=== PATIENT | female | born 1985 | race Caucasian/White ===

== ENCOUNTER 2017-10-20 08:49 | Emergency (ER) | payer MEDICAID ==
[~2017-10-20] VITALS: Ht 172.7 cm; Wt 59.1 kg
[~2017-10-20 08:49] MED LIST: NO HOME MEDS
[2017-10-20 08:57] VITALS: BP 118/81
== END 2017-10-20 09:20 | disposition home or self-care (01) ==
LOC: ER 08:49
DX: Z04.1 Encounter for examination and observation following transport accident (principal); F12.90 Cannabis use, unspecified, uncomplicated; F15.90 Other stimulant use, unspecified, uncomplicated; Z56.0 Unemployment, unspecified
CPT/HCPCS: 99283

== ENCOUNTER 2018-03-28 08:57 | Emergency (ER) | payer MEDICAID ==
[~2018-03-28] VITALS: Ht 165.1 cm; Wt 72.7 kg
[2018-03-28 09:02] VITALS: BP 120/73
[2018-03-28 09:26] LABS: BASOPHILS % (AUTO) 0.3 % (0-1); EOSINOPHILS # (AUTO) 0.1 X10'3 (0-0.9); EOSINOPHILS % (AUTO) 1.9 % (0-6); HEMATOCRIT 36.6 % (35.0-45.0); HEMOGLOBIN 12.4 g/dl (12.0-16.0); LYMPHOCYTES # (AUTO) 1.2 X10'3 (1.1-4.8); LYMPHOCYTES % (AUTO) 18.4 % (21-51); MEAN CORPUSCULAR HEMOGLOBIN 30.2 PG (27.0-31.0); MEAN CORPUSCULAR HGB CONC 33.8 % (33.0-36.5); MEAN CORPUSCULAR VOLUME 89.1 FL (78-98); MEAN PLATELET VOLUME 7.6 FL (7.4-10.4); MONOCYTES # (AUTO) 0.3 X10'3 (0-0.9); MONOCYTES % (AUTO) 4.6 % (2-12); NEUTROPHILS # (AUTO) 4.9 X10'3 (1.8-7.7); NEUTROPHILS % (AUTO) 74.8 % (42-75); PLATELET COUNT 230 X10'3 (140-440); RED CELL DISTRIBUTION WIDTH 13.4 % (11.5-14.5); WHITE BLOOD COUNT 6.6 X10'3 (4.5-11.0)
[2018-03-28 09:31] LABS: URINE HCG NEGATIVE (NEG)
[2018-03-28 09:42] LABS: URINE AMPHETAMINE SCREEN NEGATIVE (Neg); URINE BARBITUATE SCREEN NEGATIVE (Neg); URINE BENZODIAZEPINES SCREEN NEGATIVE (Neg); URINE CANNABINOID SCREEN NEGATIVE (Neg); URINE COCAINE SCREEN NEGATIVE (Neg); URINE METHADONE SCREEN NEGATIVE (Neg); URINE OPIATE SCREEN NEGATIVE (Neg); URINE PHENCYCLIDINE SCREEN NEGATIVE (Neg)
[2018-03-28 09:44] LABS: ALANINE AMINOTRANSFERASE 26 U/L (12-78); ALBUMIN 3.6 G/DL (3.4-5.0); ALBUMIN/GLOBULIN RATIO 0.9 (1.1-1.5); ALKALINE PHOSPHATASE 65 IU/L (46-116); ANION GAP 7 (8-16); ASPARTATE AMINO TRANSFERASE 20 U/L (10-37); BILIRUBIN,TOTAL 0.4 MG/DL (0.1-1.0); BLOOD UREA NITROGEN 18 MG/DL (7-18); CHLORIDE 103 MMOL/L (99-107); ETHANOL < 0.010 GM/DL (0.0-0.010); GLUCOSE 88 MG/DL (70-104); SODIUM 140 MMOL/L (135-145); TOTAL CARBON DIOXIDE 29.9 MMOL/L (24-32); TOTAL PROTEIN 7.4 G/DL (6.4-8.2); eGFR 72 ML/MIN
[2018-03-28 09:45] LABS: CLARITY,URINE CLEAR (Clear); COLOR,URINE YELLOW (Yellow); GLUCOSE, URINE NEGATIVE (Neg); KETONES,URINE NEGATIVE (Neg); LEUKOCYTE ESTERASE ,URINE TRACE (Neg); NITRITES, URINE NEGATIVE (Neg); OCCULT BLOOD,URINE NEGATIVE (Neg); PH,URINE 6.5 (4.8-8.0); PROTEIN,URINE NEGATIVE (Neg); UA COLLECTION TYPE CLN CATCH MIDSTREAM; UROBILINOGEN,URINE 0.2 E.U/dL (0.2-1.0)
[2018-03-28 09:51] LABS: BACTERIA,URINE NONE SEEN /HPF (Neg); RBC,URINE NONE SEEN /HPF (0-2); SQUAMOUS EPITHELIAL CELL,UR FEW /LPF (FEW); WBC,URINE 0-4 /HPF (0-4)
== END 2018-03-28 10:00 ==
LOC: ER 08:57
DX: F20.9 Schizophrenia, unspecified (principal); F41.9 Anxiety disorder, unspecified; F12.90 Cannabis use, unspecified, uncomplicated; F15.90 Other stimulant use, unspecified, uncomplicated; F10.10 Alcohol abuse, uncomplicated; Z56.0 Unemployment, unspecified
CPT/HCPCS: 36415; 80053; 80305; 80320; 81001; 81025; 85025; 99285

== ENCOUNTER 2018-05-24 20:13 | Emergency (ER) | payer MEDICAID ==
[~2018-05-24] VITALS: Ht 165.1 cm; Wt 77.2 kg
[2018-05-24 21:37] LABS: BASOPHILS % (AUTO) 0.6 % (0-1); EOSINOPHILS # (AUTO) 0.1 X10'3 (0-0.9); EOSINOPHILS % (AUTO) 1.1 % (0-6); HEMATOCRIT 35.4 % (35.0-45.0); HEMOGLOBIN 12.1 g/dl (12.0-16.0); LYMPHOCYTES # (AUTO) 1.3 X10'3 (1.1-4.8); LYMPHOCYTES % (AUTO) 17.7 % (21-51); MEAN CORPUSCULAR HEMOGLOBIN 31.5 PG (27.0-31.0); MEAN CORPUSCULAR HGB CONC 34.2 % (33.0-36.5); MEAN PLATELET VOLUME 7.4 FL (7.4-10.4); MONOCYTES # (AUTO) 0.4 X10'3 (0-0.9); MONOCYTES % (AUTO) 5.2 % (2-12); NEUTROPHILS # (AUTO) 5.6 X10'3 (1.8-7.7); NEUTROPHILS % (AUTO) 75.4 % (42-75); PLATELET COUNT 238 X10'3 (140-440); RED BLOOD COUNT 3.84 X10'6 (4.20-5.60); RED CELL DISTRIBUTION WIDTH 13.8 % (11.5-14.5); WHITE BLOOD COUNT 7.4 X10'3 (4.5-11.0)
[2018-05-24 21:52] LABS: ALANINE AMINOTRANSFERASE 20 U/L (12-78); ALBUMIN 3.8 G/DL (3.4-5.0); ALKALINE PHOSPHATASE 64 IU/L (46-116); ANION GAP 6 (8-16); ASPARTATE AMINO TRANSFERASE 14 U/L (10-37); BILIRUBIN,TOTAL 0.2 MG/DL (0.1-1.0); BLOOD UREA NITROGEN 19 MG/DL (7-18); BUN/CREATININE RATIO 19.4 (6.6-38.0); CALCIUM 8.6 MG/DL (8.5-10.1); CHLORIDE 102 MMOL/L (99-107); CREATININE 0.98 MG/DL (0.40-0.90); GLUCOSE 82 MG/DL (70-104); POTASSIUM 4.1 MMOL/L (3.5-5.1); SODIUM 138 MMOL/L (135-145); TOTAL CARBON DIOXIDE 29.9 MMOL/L (24-32); TOTAL PROTEIN 7.5 G/DL (6.4-8.2); eGFR 65 ML/MIN
[2018-05-24 22:46] LABS: CLARITY,URINE CLEAR (Clear); COLOR,URINE STRAW (Yellow); GLUCOSE, URINE NEGATIVE (Neg); KETONES,URINE NEGATIVE (Neg); LEUKOCYTE ESTERASE ,URINE NEGATIVE (Neg); NITRITES, URINE NEGATIVE (Neg); OCCULT BLOOD,URINE TRACE-INTACT (Neg); PROTEIN,URINE NEGATIVE (Neg); UA COLLECTION TYPE CLN CATCH MIDSTREAM; URINE HCG NEGATIVE (NEG); UROBILINOGEN,URINE 0.2 E.U/dL (0.2-1.0)
[2018-05-24 22:48] VITALS: BP 128/78
[2018-05-24 22:56] LABS: BACTERIA,URINE FEW /HPF (Neg); RBC,URINE NONE SEEN /HPF (0-2); SQUAMOUS EPITHELIAL CELL,UR MODERATE /LPF (FEW); WBC,URINE 0-4 /HPF (0-4)
== END 2018-05-24 22:49 | disposition home or self-care (01) ==
LOC: ER 20:13
DX: R10.2 Pelvic and perineal pain (principal); N89.8 Other specified noninflammatory disorders of vagina; F12.90 Cannabis use, unspecified, uncomplicated; F15.90 Other stimulant use, unspecified, uncomplicated; Z56.0 Unemployment, unspecified
CPT/HCPCS: 36415; 80053; 81001; 81025; 85025; 87210; 99283

== ENCOUNTER 2018-07-12 00:27 | Emergency (ER) | payer MEDICAID ==
[~2018-07-12] VITALS: Ht 172.7 cm; Wt 77.2 kg
== END 2018-07-12 01:06 | disposition home or self-care (01) ==
LOC: ER 00:28
DX: F30.9 Manic episode, unspecified (principal); F15.959 Other stimulant use, unspecified with stimulant-induced psychotic disorder, unspecified; F20.9 Schizophrenia, unspecified; F41.9 Anxiety disorder, unspecified; F12.90 Cannabis use, unspecified, uncomplicated; Z56.0 Unemployment, unspecified
CPT/HCPCS: 99284

== ENCOUNTER 2019-03-29 13:53 | Emergency (ER) | payer MEDICAID ==
[~2019-03-29] VITALS: Ht 162.6 cm; Wt 59.1 kg
[2019-03-29] MEDS ORDERED: haloperidol lactate 5mg/ml inj IM ONE (14:10)
[2019-03-29] MEDS ORDERED: LORazepam 2 mg/ml vial IM ONE (14:10)
--- NOTE | 2019-03-29 14:18 | NUR ---
PT HAS DENIED SI, ALSO DENIED HX OF SCHIZOPHRENIA, MAKING FREQUENT STATEMENTS THAT SHE IS PERSECUTED, HURT BY "THEM". PT UNABLE TO COHERENTLY STATE WHO "THEM" IS
--- NOTE | 2019-03-29 15:00 | NUR ---
PT BROUGHT TO ROOM 24 AND BEING ORIENTATED TO ENVIORMENT AND POLICIES/RULES.
[2019-03-29 15:08] LABS: URINE HCG NEGATIVE (NEG)
[2019-03-29 15:20] LABS: URINE AMPHETAMINE SCREEN POSITIVE (Neg); URINE BARBITUATE SCREEN NEGATIVE (Neg); URINE BENZODIAZEPINES SCREEN NEGATIVE (Neg); URINE CANNABINOID SCREEN NEGATIVE (Neg); URINE COCAINE SCREEN NEGATIVE (Neg); URINE METHADONE SCREEN NEGATIVE (Neg); URINE OPIATE SCREEN NEGATIVE (Neg); URINE PHENCYCLIDINE SCREEN NEGATIVE (Neg)
[2019-03-29 15:34] LABS: BASOPHILS % (AUTO) 0.5 % (0-1); EOSINOPHILS # (AUTO) 0.1 X10'3 (0-0.9); EOSINOPHILS % (AUTO) 0.7 % (0-6); HEMATOCRIT 37.2 % (35.0-45.0); HEMOGLOBIN 12.7 g/dl (12.0-16.0); LYMPHOCYTES # (AUTO) 1.6 X10'3 (1.1-4.8); LYMPHOCYTES % (AUTO) 16.4 % (21-51); MEAN CORPUSCULAR HGB CONC 34.2 g/dL (33.0-36.5); MEAN CORPUSCULAR VOLUME 90.6 FL (78-98); MEAN PLATELET VOLUME 7.2 FL (7.4-10.4); MONOCYTES # (AUTO) 0.5 X10'3 (0-0.9); MONOCYTES % (AUTO) 5.5 % (2-12); NEUTROPHILS # (AUTO) 7.3 X10'3 (1.8-7.7); NEUTROPHILS % (AUTO) 76.9 % (42-75); PLATELET COUNT 269 X10'3 (140-440); RED BLOOD COUNT 4.11 X10'6 (4.20-5.60); RED CELL DISTRIBUTION WIDTH 13.9 % (11.5-14.5); WHITE BLOOD COUNT 9.5 X10'3 (4.5-11.0)
[2019-03-29 15:41] LABS: ALANINE AMINOTRANSFERASE 18 U/L (12-78); ALBUMIN 3.7 G/DL (3.4-5.0); ALBUMIN/GLOBULIN RATIO 1.1 (1.1-1.5); ALKALINE PHOSPHATASE 63 IU/L (46-116); ANION GAP 8 (8-16); ASPARTATE AMINO TRANSFERASE 17 U/L (10-37); BILIRUBIN,TOTAL 0.4 MG/DL (0.1-1.0); BLOOD UREA NITROGEN 17 MG/DL (7-18); BUN/CREATININE RATIO 20.7 (6.6-38.0); CALCIUM 9.3 MG/DL (8.5-10.1); CHLORIDE 105 MMOL/L (99-107); CREATININE 0.82 MG/DL (0.40-0.90); GLUCOSE 99 MG/DL (70-104); POTASSIUM 3.8 MMOL/L (3.5-5.1); SODIUM 142 MMOL/L (135-145); TOTAL CARBON DIOXIDE 29.3 MMOL/L (24-32); TOTAL PROTEIN 7.1 G/DL (6.4-8.2); eGFR 80 ML/MIN
[2019-03-29 15:43] LABS: ACETAMINOPHEN < 2.0 UG/ML (10-30); ETHANOL < 0.010 GM/DL (0.0-0.010)
--- NOTE | 2019-03-29 16:23 | NUR ---
PT LAYING ON RIGHT SIDE RESTING WITH EYES CLOSED, EFFORTLESS RESPIRATIONS OBSERVED.
--- NOTE | 2019-03-29 18:08 | NUR ---
PACKET SENT TO [facility].
--- NOTE | 2019-03-29 20:00 | NUR ---
The patient appears to be sleeping. She did not wake up to eat dinner. She was allowed to sleep. SHe does not appear to be in any distress.
--- NOTE | 2019-03-29 22:05 | NUR ---
The patient appears to be sleeping.
--- NOTE | 2019-03-30 00:08 | NUR ---
The patient appears to be sleeping
--- NOTE | 2019-03-30 02:57 | NUR ---
The patient appears to be sleeping
--- NOTE | 2019-03-30 05:03 | NUR ---
The patient appears to be sleeping
--- NOTE | 2019-03-30 05:29 | NUR ---
The patient is awake and eating.
[2019-03-30 06:00] VITALS: BP 128/58
--- NOTE | 2019-03-30 07:07 | NUR ---
Patient appears to be sleeping comfortably at this time
--- NOTE | 2019-03-30 08:59 | NUR ---
After breakfast patient is now laying back down in bed resting comfortably with no apparent distress
--- NOTE | 2019-03-30 09:20 | NUR ---
called kinza camacho [phone] to order cab for pt, she will have an hour wait, she has chosen to wait in the waiting room for cab, will have her sign dc papers
--- NOTE | 2019-03-30 09:20 | NUR ---
Patient will be discharged today. Patient provided clothing from our donated clothing. Patient will be taking a cab that will be payed for by [facility]. The cab company stated that it would be about 1 hour before they can come and pick her up. After stating an understanding of discharge paperwork and signing this she stated she wanted to wait out front for the cab. Patient ID band was cut off and patient was escorted out.
== END 2019-03-30 09:30 | disposition home or self-care (01) ==
LOC: ER 13:54
DX: F15.959 Other stimulant use, unspecified with stimulant-induced psychotic disorder, unspecified (principal); F32.9 Major depressive disorder, single episode, unspecified; F20.9 Schizophrenia, unspecified; F41.9 Anxiety disorder, unspecified; F29 Unspecified psychosis not due to a substance or known physiological condition; F12.90 Cannabis use, unspecified, uncomplicated; F15.90 Other stimulant use, unspecified, uncomplicated; Z56.0 Unemployment, unspecified
CPT/HCPCS: 36415; 80053; 80178; 80305; 80320; 80329; 81025; 85025; 99285; J1630; J2060

== ENCOUNTER 2019-11-08 14:47 | Emergency (ER) | payer MEDICAID, OTHER ==
[~2019-11-08] VITALS: Ht 162.6 cm; Wt 63.6 kg
[2019-11-08] MEDS ORDERED: normal saline 1000ML IV soln IVB ONE (16:15)
[2019-11-08 17:15] LABS: BASOPHILS # (AUTO) 0.1 X10'3 (0-0.2); BASOPHILS % (AUTO) 0.6 % (0-1); EOSINOPHILS # (AUTO) 0.1 X10'3 (0-0.9); HEMATOCRIT 35.5 % (35.0-45.0); HEMOGLOBIN 11.7 g/dl (12.0-16.0); LYMPHOCYTES # (AUTO) 1.4 X10'3 (1.1-4.8); LYMPHOCYTES % (AUTO) 12.1 % (21-51); MEAN CORPUSCULAR HEMOGLOBIN 30.5 PG (27.0-31.0); MEAN CORPUSCULAR VOLUME 92.5 FL (78-98); MEAN PLATELET VOLUME 8.2 FL (7.4-10.4); MONOCYTES # (AUTO) 0.5 X10'3 (0-0.9); MONOCYTES % (AUTO) 4.3 % (2-12); NEUTROPHILS # (AUTO) 9.6 X10'3 (1.8-7.7); PLATELET COUNT 227 X10'3 (140-440); RED BLOOD COUNT 3.84 X10'6 (4.20-5.60); RED CELL DISTRIBUTION WIDTH 13.6 % (11.5-14.5); WHITE BLOOD COUNT 11.7 X10'3 (4.5-11.0)
[2019-11-08 17:20] LABS: ALANINE AMINOTRANSFERASE 25 U/L (12-78); ALBUMIN 3.6 G/DL (3.4-5.0); ALBUMIN/GLOBULIN RATIO 1.1 (1.1-1.5); ALKALINE PHOSPHATASE 61 IU/L (46-116); ANION GAP 10 (8-16); ASPARTATE AMINO TRANSFERASE 25 U/L (10-37); BILIRUBIN,TOTAL 0.5 MG/DL (0.1-1.0); BLOOD UREA NITROGEN 10 MG/DL (7-18); BUN/CREATININE RATIO 12.3 (6.6-38.0); CALCIUM 8.6 MG/DL (8.5-10.1); CHLORIDE 107 MMOL/L (99-107); CREATININE 0.81 MG/DL (0.40-0.90); GLUCOSE 88 MG/DL (70-104); POTASSIUM 3.9 MMOL/L (3.5-5.1); SODIUM 141 MMOL/L (135-145); TOTAL CARBON DIOXIDE 23.7 MMOL/L (24-32); TOTAL PROTEIN 6.9 G/DL (6.4-8.2); eGFR 81 ML/MIN
[2019-11-08 17:26] LABS: ETHANOL < 0.010 GM/DL (0.0-0.010)
--- NOTE | 2019-11-08 19:56 | NUR ---
The patient moved to bed 22 from the main ER. She was changed into green scrubs and given hygiene items. She was given a supper tray and she ate approximately 50%. She is disorganized and poorly oriented. She is asking to stay for two days but is unclear why. Her responses to the assessment questions were disorganized and rambling. When asked if she was using drugs or ETOH she stated, "Not really" She is unable to state what the year, month or date is. She stated that she shaved her head because she is being electricuted" She has psychomotor agitation. She stated that she is unable to give a urine sample at this time.
--- NOTE | 2019-11-08 20:35 | NUR ---
The patient was requested to give a urine sample but she states she can not void yet
--- NOTE | 2019-11-08 22:33 | NUR ---
The patient had taken off her shirt and was redirected to put her shirt back on. She is making delusional statements. She did get up to give a urine specimen. She asked for and received a snack.
[2019-11-08 22:51] LABS: URINE HCG NEGATIVE (NEG)
[2019-11-08 22:54] LABS: CLARITY,URINE CLOUDY (Clear); COLOR,URINE RED (Yellow); GLUCOSE, URINE NEGATIVE (Neg); KETONES,URINE NEGATIVE (Neg); LEUKOCYTE ESTERASE ,URINE TRACE (Neg); NITRITES, URINE NEGATIVE (Neg); OCCULT BLOOD,URINE LARGE (Neg); PROTEIN,URINE 30 mg/dl (Neg); UA COLLECTION TYPE CLN CATCH MIDSTREAM
[2019-11-08 22:56] LABS: BACTERIA,URINE FEW /HPF (Neg); RBC,URINE TNTC /HPF (0-2); SQUAMOUS EPITHELIAL CELL,UR FEW /LPF (FEW); WBC,URINE 0-4 /HPF (0-4)
[2019-11-08 23:02] LABS: URINE AMPHETAMINE SCREEN POSITIVE (Neg); URINE BARBITUATE SCREEN NEGATIVE (Neg); URINE BENZODIAZEPINES SCREEN NEGATIVE (Neg); URINE CANNABINOID SCREEN NEGATIVE (Neg); URINE COCAINE SCREEN NEGATIVE (Neg); URINE METHADONE SCREEN NEGATIVE (Neg); URINE OPIATE SCREEN NEGATIVE (Neg); URINE PHENCYCLIDINE SCREEN NEGATIVE (Neg)
--- NOTE | 2019-11-09 00:05 | NUR ---
The patient is resting on her bed restless at times
--- NOTE | 2019-11-09 02:17 | NUR ---
The patient appears to be sleeping
[2019-11-09 07:07] VITALS: BP 103/56
--- NOTE | 2019-11-09 10:56 | NUR ---
pt moved to bed 26 in OF. no distress noted. warm blanket given to pt.
--- NOTE | 2019-11-09 11:30 | NUR ---
[facility] stated pt needs to more alert and oriented before she is discharged but they will not place her on a hold.
--- NOTE | 2019-11-09 11:40 | NUR ---
pt being evaled by [facility]
--- NOTE | 2019-11-09 12:06 | NUR ---
pt sleeping, no distress noted. equal rr. will continue to monitor.
--- NOTE | 2019-11-09 12:47 | NUR ---
relieving RN for lunch, pt is resting quietly on gurney, resp even and unlabored
--- NOTE | 2019-11-09 15:05 | NUR ---
pt up to restroom, no distress noted.
--- NOTE | 2019-11-09 17:18 | NUR ---
pt sleeping on ledft side no distress noted.
--- NOTE | 2019-11-09 17:37 | NUR ---
[facility] and [facility]
== END 2019-11-09 18:08 ==
LOC: ER 14:48
DX: F29 Unspecified psychosis not due to a substance or known physiological condition (principal); F41.9 Anxiety disorder, unspecified; F20.9 Schizophrenia, unspecified; F12.90 Cannabis use, unspecified, uncomplicated; F15.90 Other stimulant use, unspecified, uncomplicated; Z56.0 Unemployment, unspecified
CPT/HCPCS: 36415; 71045; 80053; 80305; 80320; 81001; 81025; 84443; 85025; 87088; 93005; 99285; J7030

== ENCOUNTER 2020-02-16 12:30 | Inpatient (IN) | payer MEDICAID, OTHER ==
[~2020-02-16] VITALS: Ht 165.1 cm; Wt 84.1 kg
[2020-02-16] MEDS ORDERED: acetaminophen 325mg tablet PO PRN ×2 (15:35)
[2020-02-16] MEDS ORDERED: LORazepam 1 MG tablet PO PRN (15:35)
[2020-02-16] MEDS ORDERED: OLAN10TA3 PO (15:50)
[2020-02-16 16:07] VITALS: BP 107/70
--- NOTE | 2020-02-16 16:41 | NUR ---
ADMIT NOTE The patient is a 34 year old female admitted today at 1534 on a 1370 from the [facility]. She has a history of meth induced psychosis and multiple arrests and time spent in [facility]. She is here to determine competency to stand trial. She was pleasant and cooperative upon admission. Denies SI/HI/ and all hallucinations and does not appear to be RIS.
[2020-02-16] MEDS ORDERED: FLU VACC QS2020-21(6MOS UP)/PF 60 MCG/0.5 ML SYRINGE IMVAC ONE (16:50)
[2020-02-16 20:00] VITALS: BP 94/53
[2020-02-16] MEDS: olanzapine 10mg tablet PO SCH (20:35)
--- NOTE | 2020-02-17 01:23 | NUR ---
Nursing Progress Note Legal hold: 1370 Client on involuntary status for 1370 Report received from Leilani VILLALOBOS with use of SBAR Why are they here: patient is a current inmate at [facility] here for a competency evaluation to stand trial. Hx of meth induced psychosis and schizoaffective disorder. patient denies SI/HI, A/VH, or delusions. Currently jailed for "resisting and something drug related" per patient. Declined to elaborate. Assessment What has happened this shift: patient was asleep at shift change. patient had denied and suicidal ideation, homicidal ideation, or hallucinations. Patient spoke clearly and succinctly and appeared to be alert and oriented x4. When asked about the reasoning of trial, patient gave short answer and asked if she could take a nap until snack time. Patient woke for snack time and returned to room and to bed. Patient accepted her medication with no issue and returned to sleep. S/I, H/I: Denies A/VH: Denies Sleep: see sleep hours ADL's: Yes with encouragement Group attendance: N/A Were meds taken: Yes Any med S/E: None observed or reported Mental Status Exam Appearance: Casual in own clothes Eye contact: Good Behavior: Cooperative Speech: Soft, clear and coherent Mood: Affect: Flat Thought process: Linear Thought Content: Getting needs met Cognition: A&O X4 Insight: Good Judgment: poor Interventions PRN's used: NA Therapeutic interventions: Maintained a safe and therapeutic environment, provided clear and simple instructions, encouraged independent performance of ADLs and participation on the unit, bowel management, provided active listening, and maintained Q 15min safety checks. Restraints/seclusion/emergency medication: N/A Justification of Continued Inpatient Treatment: Patient is being assessed for quality of mental health and further needs
[2020-02-17] MEDS: olanzapine 10mg tablet PO SCH ×2 (07:27→20:58)
[2020-02-17 07:35] VITALS: BP 109/67
[2020-02-17 07:43] LABS: BASOPHILS # (AUTO) 0.1 X10'3 (0-0.2); BASOPHILS % (AUTO) 0.6 % (0-1); EOSINOPHILS # (AUTO) 0.2 X10'3 (0-0.9); EOSINOPHILS % (AUTO) 1.7 % (0-6); HEMATOCRIT 34.3 % (35.0-45.0); HEMOGLOBIN 11.5 g/dl (12.0-16.0); LYMPHOCYTES # (AUTO) 1.9 X10'3 (1.1-4.8); LYMPHOCYTES % (AUTO) 21.4 % (21-51); MEAN CORPUSCULAR HEMOGLOBIN 31.3 PG (27.0-31.0); MEAN CORPUSCULAR HGB CONC 33.4 g/dL (33.0-36.5); MEAN CORPUSCULAR VOLUME 93.7 FL (78-98); MEAN PLATELET VOLUME 7.4 FL (7.4-10.4); MONOCYTES # (AUTO) 0.4 X10'3 (0-0.9); MONOCYTES % (AUTO) 4.8 % (2-12); NEUTROPHILS # (AUTO) 6.5 X10'3 (1.8-7.7); NEUTROPHILS % (AUTO) 71.5 % (42-75); PLATELET COUNT 240 X10'3 (140-440); RED BLOOD COUNT 3.66 X10'6 (4.20-5.60); RED CELL DISTRIBUTION WIDTH 13.8 % (11.5-14.5); WHITE BLOOD COUNT 9.1 X10'3 (4.5-11.0)
[2020-02-17 08:06] LABS: ALANINE AMINOTRANSFERASE 23 U/L (12-78); ALBUMIN 3.5 G/DL (3.4-5.0); ALKALINE PHOSPHATASE 54 IU/L (46-116); ANION GAP 7 (8-16); ASPARTATE AMINO TRANSFERASE 17 U/L (10-37); BILIRUBIN,TOTAL 0.2 MG/DL (0.1-1.0); BLOOD UREA NITROGEN 19 MG/DL (7-18); CALCIUM 8.7 MG/DL (8.5-10.1); CHLORIDE 104 MMOL/L (99-107); CREATININE 0.76 MG/DL (0.40-0.90); GLUCOSE 87 MG/DL (70-104); POTASSIUM 4.3 MMOL/L (3.5-5.1); SODIUM 140 MMOL/L (135-145); TOTAL CARBON DIOXIDE 28.9 MMOL/L (24-32); TOTAL PROTEIN 6.9 G/DL (6.4-8.2); eGFR 87 ML/MIN
[2020-02-17 08:07] LABS: CHOLESTEROL 162 MG/DL (0-200); HDL CHOLESTEROL 41 MG/DL (35-60); LDL CHOLESTEROL 107 MG/DL (50-100); TRIGLYCERIDES 55 MG/DL (20-135)
[2020-02-17 08:19] LABS: HEMOGLOBIN A1C 4.9 % (4.5-6.2)
[2020-02-17 14:40] LABS: CLARITY,URINE CLEAR (Clear); COLOR,URINE STRAW (Yellow); GLUCOSE, URINE NEGATIVE (Neg); KETONES,URINE NEGATIVE (Neg); LEUKOCYTE ESTERASE ,URINE NEGATIVE (Neg); NITRITES, URINE NEGATIVE (Neg); OCCULT BLOOD,URINE NEGATIVE (Neg); PH,URINE 6.5 (4.8-8.0); PROTEIN,URINE NEGATIVE (Neg); UROBILINOGEN,URINE 0.2 E.U/dL (0.2-1.0)
[2020-02-17 14:41] LABS: UA COLLECTION TYPE NON-SPECIFIED
[2020-02-17 14:51] LABS: URINE AMPHETAMINE SCREEN NEGATIVE (Neg); URINE BARBITUATE SCREEN NEGATIVE (Neg); URINE BENZODIAZEPINES SCREEN NEGATIVE (Neg); URINE CANNABINOID SCREEN NEGATIVE (Neg); URINE COCAINE SCREEN NEGATIVE (Neg); URINE METHADONE SCREEN NEGATIVE (Neg); URINE OPIATE SCREEN NEGATIVE (Neg); URINE PHENCYCLIDINE SCREEN NEGATIVE (Neg)
--- NOTE | 2020-02-17 15:09 | NUR ---
NURSING PROGRESS NOTE Legal hold: 1370 Client on involuntary status for 1370 Report received from DESI Ramon with use of SBAR Why are they here: The patient is a 34 year old female [facility]0 [facility] the [facility]. She has a history of meth induced psychosis and multiple arrests and time spent in [facility]. She is here to determine competency to stand trial. She was pleasant and cooperative upon admission. Denies SI/HI/ and all hallucinations and does not appear to be responding to internal stimuli. Assessment What has happened this shift: Up early and in the shower, came to breakfast and all meals and took medication without reluctance. Slept most of day getting up only for brief periods. Denies suicidal thoughts and all hallucinations. No delusional statements. When asked questions gives very brief answers and then immediately asks for something like food, drinks, snacks, the time, or meds, as though she is testing staff. Alert and oriented x4. Provided urine sample as requested. Cooperative, polite and no incidents. S/I, H/I: Denies A/VH: Denies Sleep: slept most of day ADL's: self Group attendance: none Were meds taken: Yes Any med S/E: None observed or reported Mental Status Exam Appearance: Casual in own clothes Eye contact: Good Behavior: Cooperative Speech: Soft, clear and coherent Mood: euthymic Affect: blunted Thought process: Linear Thought Content: Getting needs met Cognition: A&O X4 Insight: poor to fair Judgment: fair Interventions PRN's used: NA Therapeutic interventions: Maintained a safe and therapeutic environment, provided clear and simple instructions, encouraged independent performance of ADLs and participation on the unit, bowel management, provided active listening, and maintained Q 15min safety checks. Restraints/seclusion/emergency medication: N/A Justification of Continued Inpatient Treatment: Patient is being assessed for competency to stand trial.
--- NOTE | 2020-02-17 18:15 | NUR ---
Patient in room 330. I have received report from JESSA ABBASI RN and had the opportunity to ask questions and assume patient care. Addendum: 02/17/20 at 2334 by Darlyn Black RN Amended: Links added.
--- NOTE | 2020-02-17 18:15 | NUR ---
Patient in room MH 330. I have received report from JESSA ABBASI RN and had the opportunity to ask questions and assume patient care.
[2020-02-17 19:00] VITALS: BP 97/48
--- NOTE | 2020-02-17 21:04 | NUR ---
PT awoke for snack and took her zyprexa po swallowed it no complaints stated she had a bm today. not in a talkative mood.
--- NOTE | 2020-02-17 22:30 | NUR ---
RESTING WITHOUT S&S OF DISTRESS.
--- NOTE | 2020-02-17 23:37 | NUR ---
resting no changes.
--- NOTE | 2020-02-18 00:47 | NUR ---
resting without changes.
--- NOTE | 2020-02-18 02:50 | NUR ---
resting without changes.
--- NOTE | 2020-02-18 03:25 | NUR ---
awoke requested apple&cranberry juice mixed with ice water and crackers. drank first pitcher and requested a second one same mix with patience crackers. gave them to her. had child like talk in her requests. said she needed to drink a lot of water. checked to ensure she was to one drinking it all and not her roommate. noted she was.
--- NOTE | 2020-02-18 05:30 | NUR ---
pt up sitting in a chair staring out the window, roommate asleep did not engage in conversation with the pt.
--- NOTE | 2020-02-18 05:45 | NUR ---
came out to the desk and requested head phones.
--- NOTE | 2020-02-18 05:50 | NUR ---
layin in bed with headphones on.
--- NOTE | 2020-02-18 06:24 | NUR ---
pacing in the rosales.
[2020-02-18 07:01] LABS: BASOPHILS # (AUTO) 0.1 X10'3 (0-0.2); BASOPHILS % (AUTO) 0.8 % (0-1); EOSINOPHILS # (AUTO) 0.2 X10'3 (0-0.9); EOSINOPHILS % (AUTO) 2.1 % (0-6); HEMATOCRIT 30.6 % (35.0-45.0); HEMOGLOBIN 10.3 g/dl (12.0-16.0); LYMPHOCYTES # (AUTO) 1.5 X10'3 (1.1-4.8); LYMPHOCYTES % (AUTO) 18.6 % (21-51); MEAN CORPUSCULAR HEMOGLOBIN 31.8 PG (27.0-31.0); MEAN CORPUSCULAR HGB CONC 33.7 g/dL (33.0-36.5); MEAN CORPUSCULAR VOLUME 94.4 FL (78-98); MEAN PLATELET VOLUME 7.3 FL (7.4-10.4); MONOCYTES # (AUTO) 0.5 X10'3 (0-0.9); MONOCYTES % (AUTO) 6.6 % (2-12); NEUTROPHILS # (AUTO) 5.9 X10'3 (1.8-7.7); NEUTROPHILS % (AUTO) 71.9 % (42-75); PLATELET COUNT 217 X10'3 (140-440); RED BLOOD COUNT 3.24 X10'6 (4.20-5.60); RED CELL DISTRIBUTION WIDTH 13.8 % (11.5-14.5); WHITE BLOOD COUNT 8.2 X10'3 (4.5-11.0)
[2020-02-18 07:03] LABS: CHLORIDE 107 MMOL/L (99-107); SODIUM 144 MMOL/L (135-145)
[2020-02-18 07:33] VITALS: BP 107/67
[2020-02-18] MEDS: olanzapine 10mg tablet PO SCH ×2 (07:44→19:37)
[2020-02-18 07:46] LABS: ANION GAP 6 (8-16); BILIRUBIN,TOTAL 0.2 MG/DL (0.1-1.0); BLOOD UREA NITROGEN 16 MG/DL (7-18); BUN/CREATININE RATIO 20.8 (6.6-38.0); CALCIUM 8.2 MG/DL (8.5-10.1); CREATININE 0.77 MG/DL (0.40-0.90); GLUCOSE 66 MG/DL (70-104); TOTAL CARBON DIOXIDE 30.9 MMOL/L (24-32); eGFR 86 ML/MIN
[2020-02-18 07:47] LABS: ALANINE AMINOTRANSFERASE 28 U/L (12-78); ALKALINE PHOSPHATASE 50 IU/L (46-116); ASPARTATE AMINO TRANSFERASE 19 U/L (10-37); CHOL/HDL RATIO 4.1 (0.00-4.99); CHOLESTEROL 135 MG/DL (0-200); HDL CHOLESTEROL 33 MG/DL (35-60); LDL CHOLESTEROL 86 MG/DL (50-100); TRIGLYCERIDES 86 MG/DL (20-135)
[2020-02-18] MEDS ORDERED: hydrOXYzine 25 MG tablet PO ONE (12:20)
[2020-02-18] MEDS ORDERED: nicotine 21mg patch - 24 hr TD ONE (12:25)
[2020-02-18] MEDS ORDERED: NICOTINE POLACRILEX 2 MG LOZENGE BC ONE (12:25)
[2020-02-18] MEDS: cephalexin 500mg capsule PO SCH ×2 (14:51→19:37)
--- NOTE | 2020-02-18 17:03 | NUR ---
NURSING PROGRESS NOTE Legal hold: 1370 Client on involuntary status for 1370 Report received from GRISELDA Garber with use of SBAR Why are they here: The patient is a 34 year old female [facility]0 [facility]. She has a history of meth induced psychosis and multiple arrests and time spent in prison. She is here to determine competency to stand trial. She was pleasant and cooperative upon admission. Denies SI/HI/ and all hallucinations and does not appear to be responding to internal stimuli. Assessment What has happened this shift: Received patient sleeping at shift change. Pt came to breakfast then returned to her room to sleep. Pt is compliant and cooperative with care and medications. Reports feeling tired. Pt answers this RNs questions, but does not engage in conversation. Pt is focused on food and requests snacks and drinks throughout the day. Pt isolates to her room, sleeping most of the shift, but attends meals and snack time. Pt was started on Keflex 500mg q6h for cellulites on face r/t meth abuse and face picking. Pt denies SI/HI/AH/VH. Does not appear to be internally preoccupied. Pt requested Ativan in the AM, which was later changed to Atarax per provider. Low RBCs- 3.24; Hgb 10.3; Hct 30.6 - Dr Browne aware. Will continue to monitor. S/I, H/I: Pt denies both. A/VH: Pt denies both. Sleep: 6.5 hrs per Sleep Assessment. Sleeps most of shift. ADL's: Independent Group attendance: No group scheduled Were meds taken: Yes, without hesitation. Any med S/E: None observed or reported. Mental Status Exam Appearance: Clean, wearing appropriate personal attire. Eye contact: Good Behavior: Cooperative, isolated to room and self. Requests food, snacks and drinks throughout day. Speech: Soft, clear, minimal. Mood: Euthymic Affect: Congruent with mood. Thought process: Linear Thought Content: Getting needs met. Cognition: A&O X4 Insight: Poor Judgment: Fair Interventions PRN's used: Ativan, Atarax Therapeutic interventions: Maintained a safe and therapeutic environment, provided clear and simple instructions, encouraged independent performance of ADLs and participation on the unit, ,medication administration/education/monitoring, provided active listening, maintained Q 15min safety checks. Restraints/seclusion/emergency medication: N/A Justification of Continued Inpatient Treatment: Patient is being assessed for competency to stand trial.
[2020-02-18 20:50] VITALS: BP 97/50
--- NOTE | 2020-02-19 01:21 | NUR ---
NURSING PROGRESS NOTE Legal hold: 1370 Client on involuntary status for 1370 Report received from GRISELDA Duke with use of SBAR Why are they here: The patient is a 34 year old female admitted on a 1370 from the [facility]. She has a history of meth induced psychosis and multiple arrests and time spent in [facility]. She is here to determine competency to stand trial. She was pleasant and cooperative upon admission. Denies SI/HI/ and all hallucinations and does not appear to be responding to internal stimuli. Assessment What has happened this shift: Received patient in bed at shift change. Pt is compliant and cooperative with care and medications.Pt answers this RNs questions, but does not engage in conversation. Pt isolates to her room, sleeping most of the shift, but attends meals and snack time. Low RBCs- 3.24; Hgb 10.3; Hct 30.6 - Dr Browne aware. Will continue to monitor. S/I, H/I: Pt denies both. A/VH: Pt denies both. Sleep: see sleep assessment ADL's: Independent Group attendance: No group scheduled Were meds taken: Yes, without hesitation. Any med S/E: None observed or reported. Mental Status Exam Appearance: Clean, wearing appropriate personal attire. Eye contact: Good Behavior: Cooperative, isolated to room and self. Speech: Soft, clear, minimal. Mood: Euthymic Affect: Congruent with mood. Thought process: Linear Thought Content: Getting needs met. Cognition: A&O X4 Insight: Poor Judgment: Fair Interventions PRN's used: none Therapeutic interventions: Maintained a safe and therapeutic environment, provided clear and simple instructions, encouraged independent performance of ADLs and participation on the unit, ,medication administration/education/monitoring, provided active listening, maintained Q 15min safety checks. Restraints/seclusion/emergency medication: N/A Justification of Continued Inpatient Treatment: Patient is being assessed for competency to stand trial.
[2020-02-19] MEDS: cephalexin 500mg capsule PO SCH ×4 (02:14→20:02)
[2020-02-19] MEDS: traZODone 50mg tablet PO PRN ×2 (02:22→20:03)
[2020-02-19] MEDS: mag hydrox/Alum hydrox/simeth 30ml oral suspension PO PRN ×2 (03:19→10:09)
[2020-02-19] MEDS: NICOTINE POLACRILEX 2 MG LOZENGE BC PRN ×2 (03:19→10:10)
--- NOTE | 2020-02-19 03:22 | NUR ---
pt wanted maalox stated her stomach was bloated, also wanted a nicotine lozenge both at 0315
[2020-02-19] MEDS: hydrOXYzine 25 MG tablet PO PRN ×2 (04:01→10:10)
[2020-02-19 07:41] VITALS: BP 107/59
[2020-02-19] MEDS: nicotine 14mg patch - 24hr TD SCH (07:58)
[2020-02-19] MEDS: lactobacillus rhamnosus 10,000 MMU CELLS/CAPSULE PO SCH (07:58)
[2020-02-19] MEDS ORDERED: nicotine 21mg patch - 24 hr TD SCH (08:00)
[2020-02-19] MEDS: olanzapine 10mg tablet PO SCH ×2 (08:08→20:03)
--- NOTE | 2020-02-19 14:58 | NUR ---
NURSING PROGRESS NOTE Legal hold: 1370 Client on involuntary status for 1370 Report received from GRISELDA Ramon with use of SBAR Why are they here: The patient is a 34 year old female [facility]0 [facility]. She has a history of meth induced psychosis and multiple arrests and time spent in [facility]. She is here to determine competency to stand trial. She was pleasant and cooperative upon admission. Denies SI/HI/ and all hallucinations and does not appear to be responding to internal stimuli. Assessment What has happened this shift: Received patient sleeping at shift change, no distress noted. Pt wakes for breakfast then returns to her room to nap. Pt is cooperative with care and medications. Pt is pleasant and polite during 1:1, but answers questions minimally. Pt presents with a blunted affect. Pt reported "feeling gassy and bloated" requested Maalox, with some effect. Abdomen is round and soft, no pain with palpation. Pt reports last BM was yesterday describes as soft and small. Patient isolates to self, but is up for meals and snacks. Pt requested Atarax to "feeling anxious" wasn't able to pinpoint a direct cause. Administered and pt returned to her room and slept. Pt denies SI/HI/AH/VH, depression. Pt appears to be more clear in her thought today. Patient states she is interested in going to [employer] [facility] [employer]. S/I, H/I: Pt denies both. A/VH: Pt denies both. Sleep: 7.45 hrs per Sleep Assessment. Sleeps most of shift. ADL's: Independent Group attendance: Refused both AM/PM Were meds taken: Yes, without hesitation. Any med S/E: None observed or reported. Mental Status Exam Appearance: Clean, wearing appropriate personal attire. Eye contact: Good Behavior: Cooperative, isolated to room and self. Requests food, snacks and drinks throughout day. Speech: Soft, clear, minimal. Mood: Euthymic Affect: Congruent with mood. Thought process: Linear Thought Content: Getting needs met. Cognition: A&O X4 Insight: Poor Judgment: Fair Interventions PRN's used: Ativan, Atarax Therapeutic interventions: Maintained a safe and therapeutic environment, provided clear and simple instructions, encouraged independent performance of ADLs and participation on the unit, ,medication administration/education/monitoring, provided active listening, maintained Q 15min safety checks. Restraints/seclusion/emergency medication: N/A Justification of Continued Inpatient Treatment: Patient is being assessed for competency to stand trial.
[2020-02-19 19:49] VITALS: BP 100/60
--- NOTE | 2020-02-20 01:19 | NUR ---
NURSING PROGRESS NOTE Legal hold: 1370 Client on involuntary status for 1370 Report received from GRISELDA Duke with use of SBAR Why are they here: The patient is a 34 year old female admitted on a 1370 from the [facility]. She has a history of meth induced psychosis and multiple arrests and time spent in senior [facility]. She is here to determine competency to stand trial. She was pleasant and cooperative upon admission. Denies SI/HI/ and all hallucinations and does not appear to be responding to internal stimuli. Assessment What has happened this shift: The patient was found sleeping in her bed at shift change. She did not wake easily, but woke long enough to say "I'm really tired, and need to sleep." Asked her if there was something making her tired, and she did not answer. The patient was again asleep at HS med pass, but she woke and took her medications. She made no c/o anxiety or anything else. She has isolated to her room all night. S/I, H/I: Denies. A/VH: Denies. Sleep: See sleep assessment. ADL's: Independent Group attendance: No night groups Were meds taken: Yes. Any med S/E: None observed or reported. Mental Status Exam Appearance: Clean, wearing appropriate personal attire. Eye contact: Good Behavior: Cooperative, guarded, isolative, withdrawn. Speech: Soft, clear, minimal. Mood: Euthymic Affect: Congruent with mood. Thought process: Linear Thought Content: Getting needs met. Cognition: A&O X4 Insight: Poor Judgment: Fair Interventions PRN's used: None Therapeutic interventions: Maintained a safe and therapeutic environment, provided clear and simple instructions, encouraged independent performance of ADLs and participation on the unit, ,medication administration/education/monitoring, provided active listening, maintained Q 15min safety checks. Restraints/seclusion/emergency medication: N/A Justification of Continued Inpatient Treatment: Patient is being assessed for competency to stand trial.
[2020-02-20] MEDS: cephalexin 500mg capsule PO SCH ×4 (02:00→20:35)
[2020-02-20] MEDS: mag hydrox/Alum hydrox/simeth 30ml oral suspension PO PRN ×2 (03:20→18:10)
[2020-02-20] MEDS: NICOTINE POLACRILEX 2 MG LOZENGE BC PRN ×3 (03:20→18:10)
[2020-02-20] MEDS: olanzapine 10mg tablet PO SCH ×2 (07:44→20:35)
[2020-02-20] MEDS: lactobacillus rhamnosus 10,000 MMU CELLS/CAPSULE PO SCH (07:44)
[2020-02-20] MEDS: nicotine 14mg patch - 24hr TD SCH (07:44)
[2020-02-20 07:45] VITALS: BP 90/55
[2020-02-20] MEDS: hydrOXYzine 25 MG tablet PO PRN ×2 (12:30→18:11)
[2020-02-20] MEDS: magnesium hydroxide 30ml (MOM) UD suspension PO PRN (12:31)
--- NOTE | 2020-02-20 17:36 | NUR ---
NURSING PROGRESS NOTE Legal hold: 1370 Client on involuntary status for 1370 Report received from GRISELDA Ramon with use of SBAR Why are they here: The patient is a 34 year old female admitted on a 1370 [facility] the [facility]. She has a history of meth induced psychosis and multiple arrests and time spent in long term. She is here to determine competency to stand trial. She was pleasant and cooperative upon admission. Denies SI/HI/ and all hallucinations and does not appear to be responding to internal stimuli. Assessment What has happened this shift: Patient sleeping at shift change. Patient awakens for breakfast. Patient is medication compliant. Patient denies all symptoms. Patient is guarded in conversation and answers questions pointedly. Patient naps much of the day, and isolates to her room. S/I, H/I: Pt denies both. A/VH: Pt denies both. Sleep: 9.5 hrs per Sleep Assessment. Slept most of the shift. ADL's: Independent Group attendance: Refused both AM/PM Were meds taken: Yes, without hesitation. Any med S/E: None observed or reported. Mental Status Exam Appearance: Neat and clean wearing casual clothing. Eye contact: Good Behavior: Cooperative, isolated to room and self. Requests food, snacks and drinks throughout day. Speech: Soft, clear, minimal. Mood: Euthymic Affect: Congruent with mood. Thought process: Linear Thought Content: Getting needs met. Sleeping. Cognition: A&O X4 Insight: Poor Judgment: Fair Interventions PRN's used: Ativan, nicotine lozenge Therapeutic interventions: Maintained a safe and therapeutic environment, provided clear and simple instructions, encouraged independent performance of ADLs and participation on the unit, ,medication administration/education/monitoring, provided active listening, maintained Q 15min safety checks. Restraints/seclusion/emergency medication: N/A Justification of Continued Inpatient Treatment: Patient is being assessed for competency to stand trial.
[2020-02-20 20:28] VITALS: BP 100/59
--- NOTE | 2020-02-20 23:59 | NUR ---
NURSING PROGRESS NOTE Legal hold: 1370 Client on involuntary status for 1370 Report received from GRISELDA Duke with use of SBAR Why are they here: The patient is a 34 year old female admitted on a 1370 from the [facility]ial. She has a history of meth induced psychosis and multiple arrests and time spent in custodial. She is here to determine competency to stand trial. She was pleasant and cooperative upon admission. Denies SI/HI/ and all hallucinations and does not appear to be responding to internal stimuli. Assessment What has happened this shift: The patient was seen at bedside for 1:1 assessment. She continues to report stomach bulging x3 weeks and severe acne. She continues to be guarded, and only answers questions if they are not personal. She has a new order for AC/HS blood glucose that was 106 at HS. She has not asked for any PRN meds, but requests lots of snacks. S/I, H/I: Denies. A/VH: Denies. Sleep: See sleep assessment. ADL's: Independent Group attendance: No night groups Were meds taken: Yes. Any med S/E: None observed or reported. Mental Status Exam Appearance: Clean, bright red facial acne, wearing green scrub bottoms and a shirt. Eye contact: Good Behavior: Cooperative, guarded, isolative, withdrawn. Speech: Clear, but minimal. Mood: Euthymic Affect: Congruent with mood. Thought process: Linear Thought Content: Getting needs met. Cognition: A&O X4 Insight: Poor Judgment: Fair Interventions PRN's used: None Therapeutic interventions: Maintained a safe and therapeutic environment, provided clear and simple instructions, encouraged independent performance of ADLs and participation on the unit, ,medication administration/education/monitoring, provided active listening, maintained Q 15min safety checks. Restraints/seclusion/emergency medication: N/A Justification of Continued Inpatient Treatment: Patient is being assessed for competency to stand trial.
[2020-02-21] MEDS: cephalexin 500mg capsule PO SCH ×4 (03:14→20:51)
[2020-02-21] MEDS: mag hydrox/Alum hydrox/simeth 30ml oral suspension PO PRN ×2 (06:13→11:49)
[2020-02-21] MEDS: lactobacillus rhamnosus 10,000 MMU CELLS/CAPSULE PO SCH (07:24)
[2020-02-21] MEDS: nicotine 14mg patch - 24hr TD SCH (07:24)
[2020-02-21] MEDS: hydrOXYzine 25 MG tablet PO PRN (07:24)
[2020-02-21] MEDS: olanzapine 10mg tablet PO SCH ×2 (07:24→20:51)
[2020-02-21] MEDS: NICOTINE POLACRILEX 2 MG LOZENGE BC PRN ×2 (07:24→11:49)
[2020-02-21 07:48] VITALS: BP 97/60
--- NOTE | 2020-02-21 10:04 | NUR ---
Initial: Pt admit DX psychosis, meth abuse, neck/face cellulitis, admit from [facility] per E[facility]. PO 90-100% avg regular diet meeting needs. LBM 02/17. No nutrition concerns at this time. Will continue to monitor. Rec: 1. continue regular diet 2. bowel care per rx 3. wt per rx Addendum: 02/21/20 at [address] Amended: Links added.
--- NOTE | 2020-02-21 11:54 | NUR ---
Re: acne: Dr. Nicholson contacted re: her acne and he had placed her on keflex previously. He verified to keep her on this and no additional orders at this time.
[2020-02-21 13:12] LABS: URINE HCG NEGATIVE (NEG)
--- NOTE | 2020-02-21 17:55 | NUR ---
NURSING PROGRESS NOTE Legal hold: 1370 Client on involuntary status for 1370 Report received from GRISELDA Acharya with use of SBAR Why are they here: The patient is a 34 year old female admitted on a 1370 from the nursing home. 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 She is here to determine competency to stand trial. She was pleasant and cooperative upon admission. Denies SI/HI/ and all hallucinations and does not appear to be responding to internal stimuli. Assessment What has happened this shift: Pt. Awake at shift change. Requesting medication, which was administered without incident. Patient is taking Keflex for facial acne. Patient requests Maalox daily for upset stomach. Patient isolates most of the time to her room, but spent some time in rec room watching t.v. Patient sleeps much of the day. S/I, H/I: Pt denies both. A/VH: Pt denies both. Sleep: 10 hrs per Sleep Assessment. Slept most of the shift. ADL's: Independent Group attendance: Refused both AM/PM Were meds taken: Yes, without hesitation. Any med S/E: None observed or reported. Mental Status Exam Appearance: Neat and clean wearing casual clothing. Eye contact: Good Behavior: Cooperative, isolated to room and self. Requests food, snacks and drinks throughout day. Speech: Soft, clear, minimal. Mood: Depressed. Affect: Blunted. Thought process: Linear Thought Content: Getting needs met. Sleeping. Cognition: A&O X4 Insight: Poor Judgment: Fair Interventions PRN's used: nicotine lozenge Therapeutic interventions: Maintained a safe and therapeutic environment, provided clear and simple instructions, encouraged independent performance of ADLs and participation on the unit, ,medication administration/education/monitoring, provided active listening, maintained Q 15min safety checks. Restraints/seclusion/emergency medication: N/A Justification of Continued Inpatient Treatment: Patient is being assessed for competency to stand trial.
[2020-02-21 20:00] VITALS: BP 93/53
--- NOTE | 2020-02-22 01:24 | NUR ---
NURSING PROGRESS NOTE Legal hold: 1370 Client on involuntary status for 1370 Report received from Agustin VILLALOBOS with use of SBAR Why are they here: The patient is a 34 year old female admitted on a 1370 from the custodial. She has a history of meth induced psychosis and multiple arrests and time spent in custodial. She is here to determine competency to stand trial. She was pleasant and cooperative upon admission. Denies SI/HI/ and all hallucinations and does not appear to be responding to internal stimuli. Assessment What has happened this shift: The patient was observed out on the unit, in the community room with peers, although not socializing. She eats snack and returns to her room. She is cooperative with 1:1 assessment and denies any discomfort at this time. She also denies SI/HI/AH/VH. She is medication compliant . S/I, H/I: Denies. A/VH: Denies. Sleep: See sleep assessment. ADL's: Independent Group attendance: No night groups Were meds taken: Yes. Any med S/E: None observed or reported. Mental Status Exam Appearance: Clean ,wearing green scrub bottoms and a shirt. Eye contact: Good Behavior: Cooperative, guarded, isolative, withdrawn. Speech: Clear, but minimal. Mood: withdrawn Affect:flat Thought process: Linear Thought Content: Getting needs met. Cognition: A&O X4 Insight: Poor Judgment: Fair Interventions PRN's used: None Therapeutic interventions: Maintained a safe and therapeutic environment, provided clear and simple instructions, encouraged independent performance of ADLs and participation on the unit, ,medication administration/education/monitoring, provided active listening, maintained Q 15min safety checks. Restraints/seclusion/emergency medication: N/A Justification of Continued Inpatient Treatment: Patient is being assessed for competency to stand trial.
[2020-02-22] MEDS: cephalexin 500mg capsule PO SCH ×4 (02:15→20:54)
[2020-02-22] MEDS: hydrOXYzine 25 MG tablet PO PRN (04:50)
[2020-02-22] MEDS: mag hydrox/Alum hydrox/simeth 30ml oral suspension PO PRN ×3 (04:51→15:08)
[2020-02-22] MEDS: NICOTINE POLACRILEX 2 MG LOZENGE BC PRN ×4 (04:51→15:08)
[2020-02-22] MEDS: olanzapine 10mg tablet PO SCH ×2 (07:56→20:54)
[2020-02-22] MEDS: lactobacillus rhamnosus 10,000 MMU CELLS/CAPSULE PO SCH (07:56)
[2020-02-22] MEDS: nicotine 14mg patch - 24hr TD SCH (07:57)
[2020-02-22 08:27] VITALS: BP 92/57
--- NOTE | 2020-02-22 10:00 | NUR ---
Group Therapy: Process Group This Clinicians goals for this process group were as follows: (1) Ask scaling questions about Patients current anxiety, depression, and irritability symptoms as a check-in. (2) Share psychoeducation about automatic thoughts and cognitive distortions. (3) Share psychoeducation on CBT thought-stopping and, thought-reframing. (4) Discuss strategies for identifying negative, unhelpful, and/or irrational thoughts as quickly as possible to avoid unwanted escalation of mental health symptoms. (5) Process patients thoughts and reflections on this topic within the group milieu. Patient identified experiencing the following levels of anxiety, depression, and anger/irritability while present in the group milieu (0-low; 10-High). Anxiety: 5-6/10 Depression: 5/10 Anger/irritability: 0/10 Patient presented as properly oriented x4 during the process group. Patient was dressed in nondescript, personal clothing that were appropriate within the milieu. She wore a fernandes long-sleeved shirt, with blue jessica jeans. Psychomotor activity was unremarkable. Patient's thought content was clear, and concrete. Patient's thought process was clear, coherent, and linear. This Clinician did not observe Patient responding to any internal stimuli during session. The rate, latency, and tone of Patients speech was within normal limits. Patient maintained regular eye contact with this Clinician. Patient presented in calm euthymic mood, with congruent affect during the process group. Patient presented as open and cooperative, and was verbally engaged and nonobtrusive within the group milieu. Patient was an active participant during the process group discussion on thinking errors, and the CBT interventions of thought-stopping, and thought-reframing to change thoughts that were unbalanced/unhelpful/irrational to rational alternatives. Patient's answers and comments indicated adequate awareness of the topic being discussed. She was able to personally relate to several of the cognitive distortions that were being discussed in the process group. Gallo Arias MA, JAILENE Addendum: 02/23/20 at 0818 by Gallo ANDREW Amended: Links added.
--- NOTE | 2020-02-22 12:02 | NUR ---
Faxed [facility] referral. Jackie is agreeable to going to [facility] JAILENE Bolton
--- NOTE | 2020-02-22 14:23 | NUR ---
NURSING PROGRESS NOTE: Legal hold: 1370 Client on involuntary status for 1370 Report received from GRISELDA Acharya with use of SBAR Why are they here: The patient is a 34 year old female admitted on a 1370 from the half-way. She has a history of meth induced psychosis and multiple arrests and time spent in half-way. She is here to determine competency to stand trial. She was pleasant and cooperative upon admission. Denies SI/HI/ and all hallucinations and does not appear to be responding to internal stimuli. Assessment What has happened this shift: Pt was up before breakfast asking for her medications. Pt denied depression, SI/HI/AH/VH. Pt stated "I'm just a little tired." Pt believed she was tired from her medications. Pt stated, "I'm getting fat in here" while patting her stomach. Pt requested PRN nicotine lozenges at 0822 & 1059. Pt requested PRN Maalox at 1006 for c/o bloating and abdominal pain. Pt looked at her side view in the mirror of the seclusion/charting room and said, "it's getting better though." Pt reported that her last BM was this morning. Pt looked out the window and said, "wow these buildings are so big, sometimes they seem so small to me but they're not, they're big." Pt was present on the unit during meals and snacks, she paces at times and watches TV in the rec or community room. S/I, H/I: Pt denies A/VH: Pt denies Sleep: Pt slept 6.5 hours per noc shift report. Pt takes short naps during the day. ADL's: Independent, showered today. Group attendance: No Were meds taken: Yes Any med S/E: Pt c/o feeling tired. Mental Status Exam Appearance: Neat and clean younger appearing woman with bad facial acne and short dark hair dressed in jeans and a t-shirt. Eye contact: Good Behavior: Pleasant, cooperative, mostly isolative to self, sits and watches TV in rec room or community room. Speech: Soft, clear, minimal. Mood: Euthymic Affect: Blunted Thought process: Linear Thought Content: She's getting fat in here, she feels bloated. Cognition: A/O X4 Insight: Poor Judgment: Fair Interventions PRN's used: nicotine lozenges, Maalox Therapeutic interventions: 1:1 assessment, therapeutic communication, active listening, medication administration/education/monitoring, encouragement to attend groups, maintained Q 15 minute safety checks. Restraints/seclusion/emergency medication: N/A Justification of Continued Inpatient Treatment: Patient is being assessed for competency to stand trial.
[2020-02-22 19:54] VITALS: BP 83/40
--- NOTE | 2020-02-22 22:55 | NUR ---
NURSING PROGRESS NOTE Legal hold: 1370 Client on involuntary status for 1370 Report received from Tristen VILLALOBOS with use of SBAR Why are they here: The patient is a 34 year old female admitted on a 1370 from the detention. She has a history of meth induced psychosis and multiple arrests and time spent in detention. She is here to determine competency to stand trial. She was pleasant and cooperative upon admission. Denies SI/HI/ and all hallucinations and does not appear to be responding to internal stimuli. Assessment What has happened this shift: The patient isolates to her room the entirety of the shift. She has a low BP, but admits she has just been laying in bed and not drinking a lot. Educated pt on the importance of fluids , pt verbalized understanding and drank water and cranberry juice. Her HS accucheck was 114. She also denies SI/HI/AH/VH. She is medication compliant. Pt is minimal in her interaction and only talks to staff when she requests medications or food. S/I, H/I: Denies. A/VH: Denies. Sleep: See sleep assessment. ADL's: Independent Group attendance: No night groups Were meds taken: Yes. Any med S/E: None observed or reported. Mental Status Exam Appearance: Clean ,wearing green scrub bottoms and a shirt. Eye contact: Good Behavior: Cooperative, guarded, isolative, withdrawn. Speech: Clear, but minimal. Mood: withdrawn Affect:flat Thought process: Linear Thought Content: Getting needs met. Cognition: A&O X4 Insight: Poor Judgment: Fair Interventions PRN's used: None Therapeutic interventions: Maintained a safe and therapeutic environment, provided clear and simple instructions, encouraged independent performance of ADLs and participation on the unit, ,medication administration/education/monitoring, provided active listening, maintained Q 15min safety checks. Restraints/seclusion/emergency medication: N/A Justification of Continued Inpatient Treatment: Patient is being assessed for competency to stand trial.
[2020-02-23] MEDS: NICOTINE POLACRILEX 2 MG LOZENGE BC PRN ×4 (01:09→14:27)
[2020-02-23] MEDS: cephalexin 500mg capsule PO SCH ×4 (01:09→21:08)
[2020-02-23] MEDS: mag hydrox/Alum hydrox/simeth 30ml oral suspension PO PRN ×3 (01:09→14:27)
[2020-02-23] MEDS: hydrOXYzine 25 MG tablet PO PRN (04:42)
[2020-02-23] MEDS: olanzapine 10mg tablet PO SCH ×2 (07:24→21:09)
[2020-02-23] MEDS: lactobacillus rhamnosus 10,000 MMU CELLS/CAPSULE PO SCH (07:24)
[2020-02-23] MEDS: nicotine 14mg patch - 24hr TD SCH (07:25)
[2020-02-23 07:30] VITALS: BP 94/50
--- NOTE | 2020-02-23 10:00 | NUR ---
Group Therapy: Process Group This Clinicians goals for this process group were as follows: (1) Ask scaling questions about Patients current anxiety, depression, and irritability symptoms as a check-in. (2) Share psychoeducation about self-efficacy, and ego strength. (3) Provide psychoeducation on KarNeomendans Drama triangleVictim, Persecutor, Rescuer dynamic. (4) Share psychoeducation on developing positive ego strengthpositive affirmations, positive self-talk, transitioning from a victim of circumstances to a survivor of circumstances. (5) Process patients thoughts and reflections on this topic within the group milieu. Patient identified experiencing the following levels of anxiety, depression, and anger/irritability while present in the group milieu (0-low; 10-High). Anxiety: 02/02 Depression: 210 Anger/irritability: 1.5 Patient presented as properly oriented x4 during the process group. Patient was dressed in a white long-sleeved t-shirt, with blue, jessica jeans that were appropriate within the milieu. Psychomotor activity was unremarkable. Patient's thought content was clear, and concrete. Patient's thought process was clear, coherent, and linear. This Clinician did not observe Patient responding to any internal stimuli during session. The rate, latency, and tone of Patients speech was within normal limits. Patient maintained regular eye contact with this Clinician. Patient presented in calm euthymic mood, with congruent affect during the process group. Patient presented as: open, cooperative, verbally engaged, and nonobtrusive within the group milieu. Patient was an active participant during the process group discussion on CamiloNeomendkisha's Drama Clive: which discussed the Victim, Persecutor, Rescuer dynamic, in addition to the discussion on positive affirmations that one could repeat to themselves to assist them in transitioning from the mindset of a victim to that of a survivor. Patient verbalized her awareness that in order to transition from being in the place of a victim to that of a survivor she needed to be aware of the places that she puts herself in, as she acknowledged that she sometimes puts herself in situations where she gets put into, "Alf." Gallo Arias MA, PICKED EDGE SEWING MACHINE OPERATOR Addendum: 02/23/20 at 1143 by Gallo Arias SS Amended: Links added.
--- NOTE | 2020-02-23 17:28 | NUR ---
NURSING PROGRESS NOTE: Legal hold: 1370 Client on involuntary status for 1370 Report received from MARK Garber with use of SBAR Why are they here: The patient is a 34 year old female admitted on a 1370 from the intermediate. She has a history of meth induced psychosis and multiple arrests and time spent in intermediate. She is here to determine competency to stand trial. She was pleasant and cooperative upon admission. Denies SI/HI/ and all hallucinations and does not appear to be responding to internal stimuli. Assessment What has happened this shift: Received patient sleeping at shift change, no distress noted. Pt wakes prior to breakfast and requested a nicotine lozenge. All AM medications were administered without resistance and were effective. Pt is cooperative with care. Pt c/o of abdominal pain and feeling bloated, I am getting fat. Abdomen is round and firm. Pt continues to report she is having regular bowel movements and the Maalox has been helping. Pts test was negative. Administered PRN Maalox. Notified R. Eric. Received order for Clindamycin 1% topical cream for facial cellulitis/acne. Pt had a mock trial today and states it went well, they are going to schedule court. Pt voices feeling worried about what the courts are going to do. Pt denies SI/HI/AH/VH. S/I, H/I: Pt denies both. A/VH: Pt denies both. Sleep: 9.25 hours per Sleep Assessment. Pt takes short naps during the day. ADL's: Independent Group attendance: Yes Were meds taken: Yes, without incident. Any med S/E: None observed or reported. Mental Status Exam Appearance: Neat and clean younger appearing woman with bad facial acne and short dark hair dressed in jeans and a t-shirt. Eye contact: Good Behavior: Pleasant, cooperative, mostly isolative to self, sits and watches TV in rec room or community room. Speech: Soft, clear, minimal. Mood: Euthymic Affect: Blunted Thought process: Linear Thought Content: Court and getting fat. Cognition: A/O X4 Insight: Poor Judgment: Fair Interventions PRN's used: Nicotine lozenges, Maalox Therapeutic interventions: 1:1 assessment, therapeutic communication, active listening, medication administration/education/monitoring, encouragement to attend groups, maintained Q 15 minute safety checks. Restraints/seclusion/emergency medication: N/A Justification of Continued Inpatient Treatment: Patient is being assessed for competency to stand trial.
[2020-02-23 19:49] VITALS: BP 95/50
[2020-02-23] MEDS: clindamycin 1% topical susp 60ml bottle TP SCH (21:08)
--- NOTE | 2020-02-24 01:38 | NUR ---
NURSING PROGRESS NOTE Legal hold: 1370 Client on involuntary status for 1370 Report received from Tristen VILLALOBOS with use of SBAR Why are they here: The patient is a 34 year old female admitted on a 1370 from the [facility]. She has a history of meth induced psychosis and multiple arrests and time spent in [facility]. She is here to determine competency to stand trial. She was pleasant and cooperative upon admission. Denies SI/HI/ and all hallucinations and does not appear to be responding to internal stimuli. Assessment What has happened this shift: Pt is visible in the unit during shift change. She states that she had an okay day. She was mainly isolative to her room and napped throughout the evening. She was cooperative for 1:1 physical assessment and took all her HS meds. She denies any S/I, H/I, A/VH, anxiety and appears to be only mildly depressed and guarded. Pt perseverates on being discharge and snack but she remains very redirectable and pleasant. She retired to bed after she received her HS medications. Nicotine patch was removed. S/I, H/I: Denies. A/VH: Denies. Sleep: Currently sleeping, see sleep assessment for total hours ADL's: Independent Group attendance: No night groups during night shift manager Were meds taken: Yes. Any med S/E: None observed or reported. Mental Status Exam Appearance: Mostly appropriate, she does come out of her room wearing small clothing Eye contact: Good Behavior: Pleasant, cooperative, isolates to her room Speech: Clear, but minimal. Mood: Appears depressed aeb flat affect Affect: Flat Thought process: Linear Thought Content: Snack, Meds, her mock trial Cognition: A&O X4 Insight: Poor Judgment: Fair Interventions PRN's used: None Therapeutic interventions: Maintained a safe and therapeutic environment, provided clear and simple instructions, encouraged independent performance of ADLs and participation on the unit, ,medication administration/education/monitoring, provided active listening, maintained Q 15min safety checks. Restraints/seclusion/emergency medication: N/A Justification of Continued Inpatient Treatment: Patient is being assessed for competency to stand trial.
[2020-02-24] MEDS: cephalexin 500mg capsule PO SCH ×4 (02:56→20:18)
[2020-02-24] MEDS: mag hydrox/Alum hydrox/simeth 30ml oral suspension PO PRN ×3 (06:06→16:16)
[2020-02-24] MEDS: NICOTINE POLACRILEX 2 MG LOZENGE BC PRN ×4 (06:06→16:16)
[2020-02-24 07:52] VITALS: BP 88/52
[2020-02-24] MEDS: lactobacillus rhamnosus 10,000 MMU CELLS/CAPSULE PO SCH (08:14)
[2020-02-24] MEDS: olanzapine 10mg tablet PO SCH ×2 (08:14→20:18)
[2020-02-24] MEDS: spironolactone 50 MG tablet PO SCH (08:14)
[2020-02-24] MEDS: nicotine 14mg patch - 24hr TD SCH (08:14)
[2020-02-24] MEDS: clindamycin 1% topical susp 60ml bottle TP SCH ×3 (08:17→20:18)
--- NOTE | 2020-02-24 18:26 | NUR ---
NURSING PROGRESS NOTE Legal hold: 1370 Client on involuntary status for 1370 Report received from RN with use of SBAR Why are they here: The patient is a 34 year old female admitted on a 1370 from the alf. She has a history of meth induced psychosis and multiple arrests and time spent in alf. She is here to determine competency to stand trial. She was pleasant and cooperative upon admission. Denies SI/HI/ and all hallucinations and does not appear to be responding to internal stimuli. Assessment What has happened this shift: Received Pt sleeping w/o distress in her room at beginning of shift. Pt cooperative with vitals and AM assessments. Pt took AM meds w/o issue and received Maalox X2 and nicotine Laurie. X3 this shift. She did not attend group. Pt stated she wanted to sleep and requested a PRN, but responded well to some tea and verbal intervention. She was able to nap in the afternoon, then awoke for special halloween snacks and watched TV with others in Rec. room. S/I, H/I: Pt denies A/VH: Pt denies Sleep: Napped in afternoon ADL's: Independent, showered today. Group attendance: No Were meds taken: Yes Any med S/E: Pt c/o feeling tired. Mental Status Exam Appearance: Neat and clean in own clothes Eye contact: Good Behavior: Pleasant, cooperative, mostly isolative to self, sits and watches TV in rec room or community room. Speech: Soft, clear, minimal. Mood: Euthymic Affect: Blunted Thought process: Linear Thought Content: Wants to sleep. Feels bloated. Cognition: A/O X4 Insight: Poor Judgment: Fair Interventions PRN's used: nicotine lozenges, Maalox Therapeutic interventions: 1:1 assessment, therapeutic communication, active listening, medication administration/education/monitoring, encouragement to attend groups, maintained Q 15 minute safety checks. Restraints/seclusion/emergency medication: N/A Justification of Continued Inpatient Treatment: Patient is being assessed for competency to stand trial.
[2020-02-24 19:18] VITALS: BP 98/56
--- NOTE | 2020-02-25 00:13 | NUR ---
NURSING PROGRESS NOTE Legal hold: 1370 Client on involuntary status for 1370 Report received from Tristen VILLALOBOS with use of SBAR Why are they here: The patient is a 34 year old female [facility] She has a history of meth induced psychosis and multiple arrests and time spent in [facility]. She is here to determine competency to stand trial. She was pleasant and cooperative upon admission. Denies SI/HI/ and all hallucinations and does not appear to be responding to internal stimuli. Assessment What has happened this shift: Pt was sleeping during shift change and she has been sleeping for the majority of the evening. She was cooperative for 1:1 physical assessment and took all of her PO medication but declined the clindamycin topical cream. She states that she will use it in the morning. Although she answers most of the questions asked, she engages minimally. She denies any S/I, H/I, A/VH, depression or anxiety. She requested snack and retired to bed. No behavioral issues were observed or reported. S/I, H/I: Denies. A/VH: Denies. Sleep: Currently sleeping, see sleep assessment for total hours ADL's: Independent Group attendance: No night groups during shift supervisor rn Were meds taken: Yes, refused Clindamycin cream Any med S/E: None observed or reported. Mental Status Exam Appearance: Mostly appropriate, wearing personal clothing Eye contact: Good Behavior: Pleasant, cooperative, isolates to her room Speech: Clear, but minimal. Mood: Fatigued, depressed Affect: Flat Thought process: Linear Thought Content: Snack, pt was sleeping for most of the evening and night Cognition: A&O X4 Insight: Poor Judgment: Fair Interventions PRN's used: None Therapeutic interventions: Maintained a safe and therapeutic environment, provided clear and simple instructions, encouraged independent performance of ADLs and participation on the unit, ,medication administration/education/monitoring, provided active listening, maintained Q 15min safety checks. Restraints/seclusion/emergency medication: N/A Justification of Continued Inpatient Treatment: Patient is being assessed for competency to stand trial.
[2020-02-25] MEDS: cephalexin 500mg capsule PO SCH ×2 (03:00→08:19)
[2020-02-25] MEDS: NICOTINE POLACRILEX 2 MG LOZENGE BC PRN ×5 (04:42→19:34)
[2020-02-25] MEDS: mag hydrox/Alum hydrox/simeth 30ml oral suspension PO PRN ×4 (04:42→22:06)
[2020-02-25 08:00] VITALS: BP 104/67
[2020-02-25] MEDS: olanzapine 10mg tablet PO SCH ×2 (08:19→20:14)
[2020-02-25] MEDS: lactobacillus rhamnosus 10,000 MMU CELLS/CAPSULE PO SCH (08:19)
[2020-02-25] MEDS: clindamycin 1% topical susp 60ml bottle TP SCH ×2 (08:20→20:00)
[2020-02-25] MEDS: spironolactone 50 MG tablet PO SCH (08:20)
[2020-02-25] MEDS: nicotine 14mg patch - 24hr TD SCH (08:20)
[2020-02-25] MEDS: hydrOXYzine 25 MG tablet PO PRN (11:19)
--- NOTE | 2020-02-25 17:29 | NUR ---
NURSING PROGRESS NOTE Legal hold: 1370 Client on involuntary status for 1370 Report received from RN with use of SBAR Why are they here: The patient is a 34 year old female admitted on a 1370 from the skilled nursing. She has a history of meth induced psychosis and multiple arrests and time spent in skilled nursing. She is here to determine competency to stand trial. She was pleasant and cooperative upon admission. Denies SI/HI/ and all hallucinations and does not appear to be responding to internal stimuli. Assessment What has happened this shift: Received Pt sleeping w/o distress in her room at beginning of shift. Pt cooperative with vitals and AM assessments. Pt took AM meds w/o issue and routinely asks for nicotine lozenges and Maalox for feeling gassy. Pt received atarax for anxiety in the morning. She is overall pleasant and cooperative, and appreciative of things done for her. 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 She napped and watched TV in Rec. room and overall guarded with others. Pt in pleasant mood with periods of anxiety and boredom as well. S/I, H/I: Pt denies A/VH: Pt denies Sleep: Napped in afternoon ADL's: Independent, showered today. Group attendance: No Were meds taken: Yes Any med S/E: Pt c/o feeling tired. Mental Status Exam Appearance: Neat and clean in own clothes Eye contact: Good Behavior: Pleasant, cooperative, mostly isolative to self, sits and watches TV in rec room or community room. Speech: Soft, clear, minimal. Mood: Euthymic Affect: Blunted Thought process: Linear Thought Content: Wants to sleep. Feels bloated. Cognition: A/O X4 Insight: Poor Judgment: Fair Interventions PRN's used: nicotine lozenges, Maalox Therapeutic interventions: 1:1 assessment, therapeutic communication, active listening, medication administration/education/monitoring, encouragement to attend groups, maintained Q 15 minute safety checks. Restraints/seclusion/emergency medication: N/A Justification of Continued Inpatient Treatment: Patient is being assessed for competency to stand trial.
[2020-02-25 19:29] VITALS: BP 88/46
--- NOTE | 2020-02-25 23:47 | NUR ---
NURSING PROGRESS NOTE Legal hold: 1370 Client on involuntary status for 1370 Report received from RN with use of SBAR Why are they here: The patient is a 34 year old female admitted on a 1370 from the [facility]. She has a history of meth induced psychosis and multiple arrests and time spent in [facility]. She is here to determine competency to stand trial. She was pleasant and cooperative upon admission. Denies SI/HI/ and all hallucinations and does not appear to be responding to internal stimuli. Assessment What has happened this shift: Patient was asleep in her room at change of shift.She got up and asked for a nicotine lozenge and returned to her room till snack time. Pt after snack and meds pt stayed in her room little to none interaction with peers or staff when up. S/I, H/I: Pt denies A/VH: Pt denies Sleep: Napped in afternoon ADL's: Independent, showered today. Group attendance: No Were meds taken: Yes Any med S/E: Pt c/o feeling tired. Mental Status Exam Appearance: Neat and clean in own clothes Eye contact: Good Behavior: Pleasant, cooperative, mostly isolative to self, sits and watches TV in rec room or community room. Speech: Soft, clear, minimal. Mood: Euthymic Affect: Blunted Thought process: Linear Thought Content: Wants to sleep. Feels bloated. Cognition: A/O X4 Insight: Poor Judgment: Fair Interventions PRN's used: nicotine lozenges, Maalox Therapeutic interventions: 1:1 assessment, therapeutic communication, active listening, medication administration/education/monitoring, encouragement to attend groups, maintained Q 15 minute safety checks. Restraints/seclusion/emergency medication: N/A Justification of Continued Inpatient Treatment: Patient is being assessed for competency to stand trial.
[2020-02-26] MEDS: NICOTINE POLACRILEX 2 MG LOZENGE BC PRN ×4 (07:03→18:00)
[2020-02-26] MEDS: mag hydrox/Alum hydrox/simeth 30ml oral suspension PO PRN ×2 (07:03→15:55)
[2020-02-26 08:00] VITALS: BP 104/65
[2020-02-26] MEDS: clindamycin 1% topical susp 60ml bottle TP SCH ×2 (08:08→20:00)
[2020-02-26] MEDS: olanzapine 10mg tablet PO SCH ×2 (08:09→20:15)
[2020-02-26] MEDS: nicotine 14mg patch - 24hr TD SCH (08:09)
[2020-02-26] MEDS: lactobacillus rhamnosus 10,000 MMU CELLS/CAPSULE PO SCH (08:09)
[2020-02-26] MEDS: spironolactone 50 MG tablet PO SCH (08:09)
--- NOTE | 2020-02-26 10:00 | NUR ---
Group Therapy: Process Group This Clinicians goals for this process group were as follows: (1) Ask scaling questions about patients current anxiety, depression, and irritability symptoms as a check-in. (2) Share psychoeducation about three rules of brief solution-focused problem-solving: A) Stop doing what clearly isnt working, B) Do something different, C) If the different activity works, then do more of it. If it doesnt work, then go back to principle A). (3) Identify examples of thoughts, activities, and behaviors that people do that no longer work for them, or they create more problems than solutions. (4) Identify examples of thoughts, activities, and behaviors that may help create better emotional/behavioral outcomes and lead to good solutions to problems. (5) Engage patients in discussion of the topics shared within the group milieu. Patients behaviors were monitored by milieu staff during the process group discussion. Patient identified experiencing the following levels of anxiety, depression, and anger/irritability while present in the group milieu (0-low; 10-High). Anxiety: 9/10 Depression: 0/10 Anger/irritability: 2/10 Patient presented as properly oriented x4 during the process group. Patient was dressed in nondescript, personal clothing that were appropriate within the milieu. Patient exited the process group on one occasion and returned wearing a different shirt, that still was appropriate within the milieu. One another occasion she left the table at which she was sitting and moved to the back of the process group room, sitting down next to another Patient. She then touched said patient on the hand. This Clinician verbally prompted Patient not to touch other patients and she complied readily with this request and did not touch him again. Patient's thought content was clear, and concrete. Patient's thought process was clear, coherent, and linear. This Clinician did not observe Patient responding to any internal stimuli during session. The rate, latency, and tone of Patients speech was within normal limits. Patients speech was clear, and understandable. Patient maintained intermittent eye contact with this Clinician. Patient presented in calm euthymic mood, with congruent affect during the process group. Patient presented as open, cooperative, verbally engaged, and nonobtrusive within the group milieu. Patient was an active verbal participant during the process group discussion on how to practice brief solution-focused problem solving thinking. Gallo Arias MA, FOUNDATION ASSISTANT Addendum: 02/27/20 at 0816 by Gallo ANDREW Amended: Links added.
--- NOTE | 2020-02-26 16:53 | NUR ---
NURSING PROGRESS NOTE Legal hold: 1370 Client on involuntary status for 1370 Report received from Tristen VILLALOBOS with use of SBAR Why are they here: The patient is a 34 year old female admitted on a 1370 from the retirement. She has a history of meth induced psychosis and multiple arrests and time spent in retirement. She is here to determine competency to stand trial. She was pleasant and cooperative upon admission. Denies SI/HI/ and all hallucinations and does not appear to be responding to internal stimuli. Assessment What has happened this shift: Received Pt sleeping w/o distress in her room at beginning of shift. Pt cooperative with vitals and AM assessments. Pt took AM meds w/o issue and routinely asks for nicotine lozenges and Maalox for feeling gassy. Pt is pleasant and cooperative, and appreciative of things done for her. She napped and watched TV in Rec. room and overall guarded with others. Pt denies all MH symptoms. S/I, H/I: Pt denies A/VH: Pt denies Sleep: Napped in afternoon ADL's: Independent Group attendance: No Were meds taken: Yes Any med S/E: Pt c/o feeling tired. Mental Status Exam Appearance: Neat and clean in own clothes Eye contact: Good Behavior: Pleasant, cooperative, mostly isolative to self, sits and watches TV in rec room or community room. Speech: Soft, clear, minimal. Mood: Euthymic Affect: Blunted Thought process: Linear Thought Content: Wants to sleep. Feels bloated. Cognition: A/O X4 Insight: Poor Judgment: Fair Interventions PRN's used: nicotine lozenges, Maalox Therapeutic interventions: 1:1 assessment, therapeutic communication, active listening, medication administration/education/monitoring, encouragement to attend groups, maintained Q 15 minute safety checks. Restraints/seclusion/emergency medication: N/A Justification of Continued Inpatient Treatment: Patient is being assessed for competency to stand trial.
[2020-02-26 20:14] VITALS: BP 98/80
--- NOTE | 2020-02-27 00:20 | NUR ---
NURSING PROGRESS NOTE Legal hold: 1370 Client on involuntary status for 1370 Report received from Tristen VILLALOBOS with use of SBAR Why are they here: The patient is a 34 year old female admitted on a 1370 from the [facility]. She has a history of meth induced psychosis and multiple arrests and time spent in [facility]. She is here to determine competency to stand trial. She was pleasant and cooperative upon admission. Denies SI/HI/ and all hallucinations and does not appear to be responding to internal stimuli. Assessment What has happened this shift: Patient sleeping in her room at beginning of shift. Pt cooperative with vitals and assessments. Pt took meds w/o issue . Pt is pleasant and cooperative. She is guarded with others. Pt denies all MH symptoms. S/I, H/I: Pt denies A/VH: Pt denies Sleep: Napped in afternoon ADL's: Independent Group attendance: No Were meds taken: Yes Any med S/E: Pt c/o feeling tired. Mental Status Exam Appearance: Neat and clean in own clothes Eye contact: Good Behavior: Pleasant, cooperative, mostly isolative to self, sits and watches TV in rec room or community room. Speech: Soft, clear, minimal. Mood: Euthymic Affect: Blunted Thought process: Linear Thought Content: Wants to sleep. Feels bloated. Cognition: A/O X4 Insight: Poor Judgment: Fair Interventions PRN's used: nicotine lozenges, Maalox Therapeutic interventions: 1:1 assessment, therapeutic communication, active listening, medication administration/education/monitoring, encouragement to attend groups, maintained Q 15 minute safety checks. Restraints/seclusion/emergency medication: N/A Justification of Continued Inpatient Treatment: Patient is being assessed for competency to stand trial.
[2020-02-27] MEDS: mag hydrox/Alum hydrox/simeth 30ml oral suspension PO PRN ×2 (05:07→11:35)
[2020-02-27] MEDS: olanzapine 10mg tablet PO SCH ×2 (07:44→20:21)
[2020-02-27] MEDS: lactobacillus rhamnosus 10,000 MMU CELLS/CAPSULE PO SCH (07:44)
[2020-02-27] MEDS: spironolactone 50 MG tablet PO SCH (07:44)
[2020-02-27] MEDS: nicotine 14mg patch - 24hr TD SCH (07:44)
[2020-02-27] MEDS: clindamycin 1% topical susp 60ml bottle TP SCH ×2 (08:00→20:00)
[2020-02-27 08:42] VITALS: BP 102/58
[2020-02-27] MEDS: NICOTINE POLACRILEX 2 MG LOZENGE BC PRN (13:50)
--- NOTE | 2020-02-27 17:25 | NUR ---
NURSING PROGRESS NOTE Legal hold: 1370 Client on involuntary status for 1370 Report received from Kathleen VILLALOBOS with use of SBAR Why are they here: The patient is a 34 year old female admitted on a 1370 from the [facility]. She has a history of meth induced psychosis and multiple arrests and time spent in sn[facility]. She is here to determine competency to stand trial. She was pleasant and cooperative upon admission. Denies SI/HI/ and all hallucinations and does not appear to be responding to internal stimuli. Assessment What has happened this shift: Received Pt up and visible on the unit. Pt pleasant with am assessment and has bright affect. Pt denies depression and suicidal ideation and denies homicidal ideation. Pt also denies hallucinations and does not exhibit delusional thoughts. Pt remained visible on the unit most of the day interacting with select peers or staff. S/I, H/I: Pt denies A/VH: Pt denies Sleep: Napped in afternoon ADL's: Independent Group attendance: No Were meds taken: Yes Any med S/E: Pt c/o feeling tired. Mental Status Exam Appearance: Neat and clean in own clothes Eye contact: Good Behavior: Pleasant, cooperative, mostly isolative to self, sits and watches TV in rec room or community room. Speech: Soft, clear, minimal. Mood: Euthymic Affect: Blunted Thought process: Linear Thought Content: Wants to sleep. Feels bloated. Cognition: A/O X4 Insight: Poor Judgment: Fair Interventions PRN's used: nicotine lozenges, Maalox Therapeutic interventions: 1:1 assessment, therapeutic communication, active listening, medication administration/education/monitoring, encouragement to attend groups, maintained Q 15 minute safety checks. Restraints/seclusion/emergency medication: N/A Justification of Continued Inpatient Treatment: Patient is being assessed for competency to stand trial.
[2020-02-27 20:17] VITALS: BP 96/63
--- NOTE | 2020-02-27 23:23 | NUR ---
NURSING PROGRESS NOTE Legal hold: 1370 Client on involuntary status for 1370 Report received from Tristen VILLALOBOS with use of SBAR Why are they here: The patient is a 34 year old female admitted on a 1370 from the [facility]. She has a history of meth induced psychosis and multiple arrests and time spent in correction. She is here to determine competency to stand trial. She was pleasant and cooperative upon admission. Denies SI/HI/ and all hallucinations and does not appear to be responding to internal stimuli. Assessment What has happened this shift: Patient continues to isolate to her room this shift up for snack then back to her room. Pt states she is feeling good and denies any symptoms of mental illness. Pt is waiting for compentcy letters. S/I, H/I: Pt denies A/VH: Pt denies Sleep: Napped in afternoon ADL's: Independent Group attendance: No Were meds taken: Yes Any med S/E: Pt c/o feeling tired. Mental Status Exam Appearance: Neat and clean in own clothes Eye contact: Good Behavior: Pleasant, cooperative, mostly isolative to self, sits and watches TV in rec room or community room. Speech: Soft, clear, minimal. Mood: Euthymic Affect: Blunted Thought process: Linear Thought Content: Wants to sleep. Feels bloated. Cognition: A/O X4 Insight: Poor Judgment: Fair Interventions PRN's used: nicotine lozenges, Maalox Therapeutic interventions: 1:1 assessment, therapeutic communication, active listening, medication administration/education/monitoring, encouragement to attend groups, maintained Q 15 minute safety checks. Restraints/seclusion/emergency medication: N/A Justification of Continued Inpatient Treatment: Patient is being assessed for competency to stand trial.
[2020-02-28 08:00] VITALS: BP 106/70
[2020-02-28] MEDS: nicotine 14mg patch - 24hr TD SCH (08:19)
[2020-02-28] MEDS: olanzapine 10mg tablet PO SCH ×2 (08:20→20:18)
[2020-02-28] MEDS: spironolactone 50 MG tablet PO SCH (08:20)
[2020-02-28] MEDS: clindamycin 1% topical susp 60ml bottle TP SCH ×2 (08:20→20:19)
[2020-02-28] MEDS: lactobacillus rhamnosus 10,000 MMU CELLS/CAPSULE PO SCH (08:20)
--- NOTE | 2020-02-28 10:00 | NUR ---
Group Therapy: Process Group This Clinicians goal for this process group were as follows: (1) Share psychoeducation about core beliefs and how these beliefs shapes how one views reality. (2) Compare and contrast how people with different core beliefs might interpret an identical situation differently. (3) Discuss how changing negative core beliefs to more balanced, helpful, and rational alternatives can lead to improved behaviors and mood. (4) Process patients thoughts and reflections on this topic within the group milieu. Patient behavior, and those of his peers were monitored by milieu staff. No prompting was needed to redirect any maladaptive behaviors during the process group. Patient presented as properly oriented x4 during the process group. Patient was dressed in a fernandes long-sleeved shirt and blue jessica jeans that were appropriate within the milieu. On one occasion, mid-way through the process group, Patient left the group milieu and returned with a different shirt, which was blue. In hindsight, this Clinician observed that Patient has done this on at least one occasion during his process group--where she would begin with a certain shirt and then would leave and change into a different shirt. Psychomotor activity was unremarkable. Patient's thought content was clear, and concrete. Patient's thought process was clear, coherent, and linear. This Clinician did not observe Patient responding to any internal stimuli during session. The rate, latency, and tone of Patients speech was within normal limits. Patients speech was clear, and understandable. Patient maintained intermittent eye contact with this Clinician. Patient presented in calm dysphoric mood, with flat affect during the process group. Patient presented as cooperative, verbally engaged when addressed by this Clinician, and nonobtrusive within the group milieu. Patient was verbally subdued during the process group discussion on CBT core beliefs. When asked by this Clinician if she could identify, an unbalanced, irrational, or unhelpful core belief that she may think occasionally about herself, the world or her future, she stated, "That I'm fat." This Clinician attempted to share appropriate CBT reframes to assist Patient in identifying personal strengths, other character features, and memories in which she authentically felt better about her self image to assist her in altering this negative core belief. Gallo Arias MA, EXTRUDING PRESS OPERATOR Addendum: 02/29/20 at 0914 by Gallo ANDREW Amended: Links added.
[2020-02-28] MEDS: NICOTINE POLACRILEX 2 MG LOZENGE BC PRN ×2 (10:34→14:41)
--- NOTE | 2020-02-28 14:36 | NUR ---
Reassessment: Pt PO 90-100% avg meals meeting needs. LBM 02/25. No nutrition concerns at this time. Will continue to monitor. Rec: 1. continue regular diet 2. bowel care per rx 3. wt per rx Addendum: 02/28/20 at [address] Amended: Links added.
[2020-02-28] MEDS: mag hydrox/Alum hydrox/simeth 30ml oral suspension PO PRN (14:41)
--- NOTE | 2020-02-28 14:54 | NUR ---
NURSING PROGRESS NOTE Legal hold: 1370 Client on involuntary status for 1370 Report received from RN with use of SBAR Why are they here: The patient is a 34 year old female admitted on a 1370 from the [facility]. She has a history of meth induced psychosis and multiple arrests and time spent in [facility]. She is here to determine competency to stand trial. She was pleasant and cooperative upon admission. Denies SI/HI/ and all hallucinations and does not appear to be responding to internal stimuli. Assessment What has happened this shift: Received Pt sleeping w/o distress in her room at beginning of shift. Pt cooperative with vitals and AM assessments. Pt took AM meds w/o issue and returned to bed for a nap. Pt uses nicotine Lozenges throughout the day and maalox for feeling gassy She remains pleasant and cooperative, and appreciative of when staff meets her needs. Pt attended afternoon group for about 45 minutes before leaving due to lack of interest. She appears bored at times and denies SI/HI/AH/VH. S/I, H/I: Pt denies A/VH: Pt denies Sleep: Napped after breakfast ADL's: Independent Group attendance: Yes Were meds taken: Yes Any med S/E: None observed or noted Mental Status Exam Appearance: Neat and clean in own clothes Eye contact: Good Behavior: Pleasant, cooperative, mostly isolative to self Speech: Soft, clear, minimal. Mood: Euthymic Affect: Blunted Thought process: Linear Thought Content: Meeting needs Cognition: A/O X4 Insight: Poor Judgment: Fair Interventions PRN's used: nicotine lozenges, Maalox Therapeutic interventions: 1:1 assessment, therapeutic communication, active listening, medication administration/education/monitoring, encouragement to attend groups, maintained Q 15 minute safety checks. Restraints/seclusion/emergency medication: N/A Justification of Continued Inpatient Treatment: Patient is being assessed for competency to stand trial.
[2020-02-28 19:33] VITALS: BP 111/55
--- NOTE | 2020-02-28 23:09 | NUR ---
NURSING PROGRESS NOTE Legal hold: 1370 Client on involuntary status for 1370 Report received from MARK Velez with use of SBAR Why are they here: The patient is a 34 year old female admitted on a 1370 from the custodial. She has a history of meth induced psychosis and multiple arrests and time spent in custodial. She is here to determine competency to stand trial. She was pleasant and cooperative upon admission. Denies SI/HI/ and all hallucinations and does not appear to be responding to internal stimuli. Assessment What has happened this shift: Pt was in her room sleeping in her room. Appears to be in no distress. She was woken up for her meds which she took without any issues. She denies any S/I, H/I, A/VH, but does state that she feels anxious. When asked what she was feeling anxious about, she states nothing in particular, Im just anxious. Thats why I went to sleep early. She did request any medication for this. Pt presents as guarded with minimal engagement but she does let her needs known. She requested a snack and retired to sleep after she had this. Nicotine patch was removed. S/I, H/I: Denies. A/VH: Denies. 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 Mental Status Exam Appearance: Mostly appropriate, wearing personal clothing Eye contact: Good Behavior: Pleasant, cooperative, isolative Speech: Clear, but minimal. Mood: Fatigued, anxious Affect: Blunted Thought process: Linear Thought Content: Snack, meds, discharge Cognition: A&O X4 Insight: Poor Judgment: Fair Interventions PRN's used: None Therapeutic interventions: Maintained a safe and therapeutic environment, provided clear and simple instructions, encouraged independent performance of ADLs and participation on the unit, ,medication administration/education/monitoring, provided active listening, maintained Q 15min safety checks. Restraints/seclusion/emergency medication: N/A Justification of Continued Inpatient Treatment: Patient is being assessed for competency to stand trial.
[2020-02-29] MEDS: nicotine 14mg patch - 24hr TD SCH (07:36)
[2020-02-29] MEDS: lactobacillus rhamnosus 10,000 MMU CELLS/CAPSULE PO SCH (07:36)
[2020-02-29] MEDS: olanzapine 10mg tablet PO SCH ×2 (07:36→20:08)
[2020-02-29] MEDS: spironolactone 50 MG tablet PO SCH (07:36)
[2020-02-29] MEDS: clindamycin 1% topical susp 60ml bottle TP SCH ×2 (07:37→20:08)
[2020-02-29 07:38] VITALS: BP 113/65
[2020-02-29] MEDS: NICOTINE POLACRILEX 2 MG LOZENGE BC PRN ×3 (11:12→15:46)
--- NOTE | 2020-02-29 11:15 | NUR ---
NURSING PROGRESS NOTE Legal hold: 1370 Client on involuntary status for 1370 Report received from GRISELDA Wang with use of SBAR Why are they here: The patient is a 34 year old female admitted on a 1370 from the [facility]. She has a history of meth induced psychosis and multiple arrests and time spent in [facility]. She is here to determine competency to stand trial. She was pleasant and cooperative upon admission. Denies SI/HI/ and all hallucinations and does not appear to be responding to internal stimuli. Assessment What has happened this shift: Patient reports working on mock trial is "over." States she feels "good" about it. Uses [employer] throughout day and did not attend morning group. Denies hallucinations and having no suicidal thoughts. Takes medications and is applying acne medication to her face, and it appears to be improving. Appears to be bored on the unit and retreats to nap frequently. S/I, H/I: Pt denies A/VH: Pt denies Sleep: Naps ADL's: Independent Group attendance: No Were meds taken: Yes Any med S/E: None observed or noted Mental Status Exam Appearance: Neat and clean in own clothes Eye contact: Good Behavior: Pleasant, cooperative, mostly isolative to self Speech: Soft, clear, minimal. Mood: Euthymic Affect: Blunted Thought process: Linear Thought Content: Meeting needs Cognition: Alert Insight: Poor Judgment: Fair Interventions PRN's used: nicotine lozenges Therapeutic interventions: 1:1 assessment, therapeutic communication, active listening, medication administration/education/monitoring, encouragement to attend groups, maintained Q 15 minute safety checks. Restraints/seclusion/emergency medication: N/A Justification of Continued Inpatient Treatment: Patient is being assessed for competency to stand trial.
[2020-02-29] MEDS: mag hydrox/Alum hydrox/simeth 30ml oral suspension PO PRN (13:56)
--- NOTE | 2020-02-29 15:04 | NUR ---
Letters of Competency mailed today to: [facility] attn varun maciel, attn PAOLO office; [facility] addictions counselor attn neo gómez; public defenders office, computer laboratory technician office. Patient is competent to stand trial and we are requesting that she be allowed to stay in the facility while awaiting her court date. Letters: February 26, 2020 [facility] [address] [place] [address] Re: Sentencing of Jackie Beck Re: Certificate of Buddhism to Competence (Penal Code 1372 (a)(1)) Dear [facility], Jackie is a 34-year-old female found incompetent to stand trial admitted to [facility] ([facility]) on February 16, 2020. aJckie was evaluated by a clinical psychologist in [facility], Jackie was deemed incompetent to stand trial and sent for denominational/treatment to [facility] on a 1370 [address] order. Several psychological evaluations were performed on Jackie while she was incarcerated. One evaluation notes that she stated there are too many problems, too much anxiety, I cant breathe, chest pain, she reported being paranoid and stated people trying to hurt me. During this evaluation she was not able to appropriately identify the court roles, and she indicated that she was being persecuted. She was not able to logically describe the court system and her ability to give an appropriate account of her charges was not present, stating that she was scared and that she did not understand what was happening to her. Another evaluation noted that her novel and complex thinking were underdeveloped. The psychologist also noted that Jackie has had a significant decline in her cognitive functioning over the past several years, and that the use of methamphetamine would likely make her unstable, highly agitated, and possibly aggressive. In fact, the psychologist who evaluated her believed that she was gravely disabled and not able to care for herself on the outside, and therefore should be conserved. This inability to care for herself was noted by another psychologist who reported that she was unable to complete the medication tray test and has been difficult to engage in outpatient services due, in part, to her transient lifestyle. At the time of admission, Jackie was pleasant and cooperative. She had begun taking antipsychotic medications and had clearly made improvements from the time of her last evaluation to the time of her admission to our facility. She was found to be guarded, giving only brief answers, and appeared wary of her surroundings. After successful treatment with psychotropic medication and milieu therapy she became oriented to time and place and developed recollection of the events that led to her arrest. She participated in mock trials with staff at the facility acting in various roles. She can understand the role of the circuit court judge, item processor, and role of the prosecutor. She acknowledged that the public affairs manager was there to help her, and she reported that she trusted him. Jackie has sufficient present ability to consult with her fiber technologist with a reasonable degree of rational understanding now that she has received mental health treatment and medication. She has a factual understanding of the court proceedings she will face and the various outcomes and is competent to stand trial. If you have any questions, please do not hesitate to contact me at [phone]. Sincerely, Odette Trejo Psychiatrist [facility] CC: Field Inspector Director of [facility] Transitions and Discharge (TAD) office [facility] February 26, [address] [facility] [address] [place] [address] Re: Sentencing of Jackie Cuenca Re: Recommendation for Return to Facility for Continued Treatment (Penal Code 1372 e) Dear [facility] Court: I am a Psychiatrist at [facility] ([facility]) at [facility]. I have been overseeing the treatment of Jackie since February 16, 2020. When Jackie arrived at our facility, she did not appear to be aware of or appropriately understand the legal situation and charges that brought her to our unit. While admitted to [facility], she has been treated with medications, therapeutic groups, and milieu treatment and has shown improvement in her functioning, ability to communicate, and comprehension. Despite this improvement, Jackie remains somewhat disorganized and needs to be redirected at times during the mock trial process. She continues to be treated with antipsychotic medication and milieu therapy while awaiting her court date. It is my belief that it is in the best interest of the client to remain at [facility] while awaiting her court date. The interdisciplinary team at [facility] recommends continued treatment in a hospital or treatment facility to maintain competence until she has her court date. Returning Jackie to the shelter environment would create a substantial risk that the patient would again become incompetent to stand trial before court proceedings could be resumed by the court. If returned to shelter without inpatient level of psychiatric treatment the patient would be placed at substantial risk of deterioration of her mental health, exacerbation of her perceptual disturbance and impaired thought process due to stress, and possible prolongation of the trial process due to the return of the symptoms that led to her incompetency. Further, I am concerned by her seeming inability to maintain mental health services with [facility] and am worried about her getting lost in the system. She has already shown decreased cognitive function and if she is not sober and treated psychiatrically, she will continue to lose function and medications will no longer be as helpful. It is my recommendation that rather than shelter time, Jackie receives continued outpatient mental health treatment. She would like to go to [facility] the [facility] and is interested in pursuing sobriety and a life beyond what she has had. I recommend that she receive field-based medication treatment and/or STAR team services to keep her from continuing through the mental health and justice systems. If you have any questions, please do not hesitate to contact me at [phone]. Sincerely, Odette Trejo Psychiatrist [facility] CC: Field Inspector Director of [facility] Transitions and Discharge (TAD) office [facility] Microwave Technician [facility] Office
[2020-02-29] MEDS: hydrOXYzine 25 MG tablet PO PRN (16:48)
[2020-02-29 20:00] VITALS: BP 90/48
--- NOTE | 2020-02-29 22:21 | NUR ---
NURSING PROGRESS NOTE Legal hold: 1370 Client on involuntary status for 1370 Report received from GRISELDA Duke with use of SBAR Why are they here: The patient is a 34 year old female admitted on a 1370 from the retirement. She has a history of meth induced psychosis and multiple arrests and time spent in retirement. She is here to determine competency to stand trial. She was pleasant and cooperative upon admission. Denies SI/HI/ and all hallucinations and does not appear to be responding to internal stimuli. Assessment What has happened this shift: Patient isolated to her room all evening, mostly sleeping. Pt briefly awoke for assessment and then back to sleep. Pt denied having any complaints and stated "I just want to sleep." pt accepted hs meds without issue. S/I, H/I: Pt denies A/VH: Pt denies Sleep: see sleep assessment ADL's: Independent Group attendance: No Were meds taken: Yes Any med S/E: None observed or noted Mental Status Exam Appearance: Neat and clean in own clothes Eye contact: fair Behavior: quiet, mostly isolative to self Speech: Soft, clear, minimal. Mood: Euthymic Affect: Blunted Thought process: Linear Thought Content: sleeping Cognition: Alert Insight: Poor Judgment: Fair Interventions PRN's used: none Therapeutic interventions: 1:1 assessment, therapeutic communication, active listening, medication administration/education/monitoring, encouragement to attend groups, maintained Q 15 minute safety checks. Restraints/seclusion/emergency medication: N/A Justification of Continued Inpatient Treatment: Patient is being assessed for competency to stand trial.
[2020-03-01] MEDS: clindamycin 1% topical susp 60ml bottle TP SCH ×2 (07:31→19:10)
[2020-03-01] MEDS: spironolactone 50 MG tablet PO SCH (07:31)
[2020-03-01] MEDS: olanzapine 10mg tablet PO SCH ×2 (07:31→19:10)
[2020-03-01] MEDS: lactobacillus rhamnosus 10,000 MMU CELLS/CAPSULE PO SCH (07:31)
[2020-03-01] MEDS: nicotine 14mg patch - 24hr TD SCH (07:32)
[2020-03-01 07:53] VITALS: BP 105/64
--- NOTE | 2020-03-01 10:06 | NUR ---
NURSING PROGRESS NOTE Legal hold: 1370 Client on involuntary status for 1370 Report received from GRISELDA Ramon with use of SBAR Why are they here: The patient is a 34 year old female admitted on a 1370 from the alf. She has a history of meth induced psychosis and multiple arrests and time spent in alf. She is here to determine competency to stand trial. She was pleasant and cooperative upon admission. Denies SI/HI/ and all hallucinations and does not appear to be responding to internal stimuli. Assessment What has happened this shift: Patient is in good spirits, alert and oriented. Denies all hallucinations and does not appear to be RIS. Up for meals and some TV watching, otherwise isolates to room. Cooperative and polite. States she "understands court proceedings." Able to advocate for needs. S/I, H/I: Pt denies A/VH: Pt denies Sleep: Naps ADL's: Independent Group attendance: No groups scheduled today Were meds taken: Yes Any med S/E: None observed or noted Mental Status Exam Appearance: Neat and clean in own clothes Eye contact: Good Behavior: Pleasant, cooperative Speech: Soft, clear, minimal. Mood: Euthymic Affect: Blunted Thought process: Linear Thought Content: Meeting needs Cognition: Alert Insight: fair Judgment: good Interventions PRN's used: nicotine lozenges Therapeutic interventions: 1:1 assessment, therapeutic communication, active listening, medication administration/education/monitoring, encouragement to attend groups, maintained Q 15 minute safety checks. Restraints/seclusion/emergency medication: N/A Justification of Continued Inpatient Treatment: Patient is being assessed for competency to stand trial.
[2020-03-01] MEDS: NICOTINE POLACRILEX 2 MG LOZENGE BC PRN ×3 (10:38→15:21)
[2020-03-01] MEDS: hydrOXYzine 25 MG tablet PO PRN (12:53)
--- NOTE | 2020-03-01 14:11 | NUR ---
PHONE CALL W/DAD Called Jackie's dad, Evaristo (ph# [phone]) at Jackie's request. Answered his questions regarding the 1370 process and apprised him that the hope is that Jackie goes to [facility] upon discharge. Informed him that [facility] can assist her with getting signed back up for [facility] and further treatment. JAILENE Bolton
[2020-03-01 19:30] VITALS: BP 98/60
--- NOTE | 2020-03-02 02:00 | NUR ---
NURSING PROGRESS NOTE Legal hold: 1370 Client on involuntary status for 1370 Report received from GRISELDA Duke with use of SBAR Why are they here: The patient is a 34 year old female admitted on a 1370 from the [facility]. She has a history of meth induced psychosis and multiple arrests and time spent in [facility]. She is here to determine competency to stand trial. She was pleasant and cooperative upon admission. Denies SI/HI/ and all hallucinations and does not appear to be responding to internal stimuli. Assessment What has happened this shift: Patient continues to isolate and does not want to engage. Pt slept for the entire evening shift only waking up for snacks and medications. Pt did not want to discuss how she is doing and stated, I just want to sleep. Pt was cooperative for assessments and accepted hs meds without issue. S/I, H/I: Pt denies A/VH: Pt denies Sleep: see sleep assessment ADL's: Independent Group attendance: No Were meds taken: Yes Any med S/E: None observed or noted Mental Status Exam Appearance: Neat and clean in own clothes Eye contact: fair Behavior: quiet, mostly isolative to self Speech: Soft, minimal. Mood: Euthymic Affect: Blunted Thought process: Linear Thought Content: sleeping Cognition: Alert Insight: Poor Judgment: Fair Interventions PRN's used: none Therapeutic interventions: 1:1 assessment, therapeutic communication, active listening, medication administration/education/monitoring, encouragement to attend groups, maintained Q 15 minute safety checks. Restraints/seclusion/emergency medication: N/A Justification of Continued Inpatient Treatment: Patient is being assessed for competency to stand trial.
[2020-03-02] MEDS: lactobacillus rhamnosus 10,000 MMU CELLS/CAPSULE PO SCH (07:41)
[2020-03-02] MEDS: nicotine 14mg patch - 24hr TD SCH (07:41)
[2020-03-02] MEDS: clindamycin 1% topical susp 60ml bottle TP SCH ×2 (07:41→19:42)
[2020-03-02] MEDS: spironolactone 50 MG tablet PO SCH (07:41)
[2020-03-02 07:55] VITALS: BP 103/64
[2020-03-02] MEDS: olanzapine 10mg tablet PO SCH ×2 (07:55→19:42)
[2020-03-02] MEDS: NICOTINE POLACRILEX 2 MG LOZENGE BC PRN ×4 (09:15→18:35)
--- NOTE | 2020-03-02 11:10 | NUR ---
NURSING PROGRESS NOTE Legal hold: 1370 Client on involuntary status for 1370 Report received from GRISELDA Ramon with use of SBAR Why are they here: The patient is a 34 year old female admitted on a 1370 from the prison. She has a history of meth induced psychosis and multiple arrests and time spent in prison. She is here to determine competency to stand trial. She was pleasant and cooperative upon admission. Denies SI/HI/ and all hallucinations and does not appear to be responding to internal stimuli. Assessment What has happened this shift: Patient is in good spirits, alert and oriented. Denies all hallucinations and does not appear to be RIS. Up for meals and some TV watching, and attended morning process group. Cooperative and polite. Reports her abdomen sometimes "feels numb." Abdomen in soft, non-tender but large. Patient reports good BM today and most days. med compliant. Guarded at times. S/I, H/I: Pt denies A/VH: Pt denies Sleep: Naps ADL's: Independent Group attendance: yes Were meds taken: Yes Any med S/E: None observed or noted Mental Status Exam Appearance: Neat and clean, is wearing make-up with hair fixed. Eye contact: Good Behavior: Pleasant, cooperative Speech: Soft, clear, minimal. Mood: Euthymic Affect: Blunted Thought process: Linear Thought Content: Meeting needs Cognition: Alert Insight: fair Judgment: good Interventions PRN's used: nicotine lozenges Therapeutic interventions: 1:1 assessment, therapeutic communication, active listening, medication administration/education/monitoring, encouragement to attend groups, maintained Q 15 minute safety checks. Restraints/seclusion/emergency medication: N/A Justification of Continued Inpatient Treatment: Patient is being assessed for competency to stand trial.
[2020-03-02] MEDS: hydrOXYzine 25 MG tablet PO PRN (11:57)
[2020-03-02] MEDS ORDERED: fluconazole 100mg tablet PO ONE (12:30)
[2020-03-02] MEDS: mag hydrox/Alum hydrox/simeth 30ml oral suspension PO PRN (18:35)
[2020-03-02 19:00] VITALS: BP 98/70
--- NOTE | 2020-03-03 01:41 | NUR ---
NURSING PROGRESS NOTE Legal hold: 1370 Client on involuntary status for 1370 Report received from GRISELDA Duke with use of SBAR Why are they here: The patient is a 34 year old female admitted on a 1370 from the senior care. She has a history of meth induced psychosis and multiple arrests and time spent in senior care. She is here to determine competency to stand trial. She was pleasant and cooperative upon admission. Denies SI/HI/ and all hallucinations and does not appear to be responding to internal stimuli. Assessment What has happened this shift: Patient was more active on the unit this shift. She was watching tv in the rec room with peers at change of shift. Pt denies having any complaints other than indigestion, Maalox given with good effect. Pt did not make any delusional statements and did not have any behavior issues. Pt refused face cream but accepted all other hs meds without issue. S/I, H/I: Pt denies A/VH: Pt denies Sleep: see sleep assessment ADL's: Independent Group attendance: No Were meds taken: Yes Any med S/E: None observed or noted Mental Status Exam Appearance: Neat and clean in own clothes Eye contact: fair Behavior: quiet, mostly isolative to self Speech: Soft, minimal. Mood: Euthymic Affect: Blunted Thought process: Linear Thought Content: getting needs met Cognition: Alert Insight: Poor Judgment: Fair Interventions PRN's used: none Therapeutic interventions: 1:1 assessment, therapeutic communication, active listening, medication administration/education/monitoring, encouragement to attend groups, maintained Q 15 minute safety checks. Restraints/seclusion/emergency medication: N/A Justification of Continued Inpatient Treatment: Patient is being assessed for competency to stand trial.
[2020-03-03 08:00] VITALS: BP 97/56
[2020-03-03] MEDS: clindamycin 1% topical susp 60ml bottle TP SCH ×2 (08:00→20:00)
[2020-03-03] MEDS: spironolactone 50 MG tablet PO SCH (08:27)
[2020-03-03] MEDS: olanzapine 10mg tablet PO SCH ×2 (08:27→20:08)
[2020-03-03] MEDS: nicotine 14mg patch - 24hr TD SCH (08:29)
--- NOTE | 2020-03-03 16:23 | NUR ---
NURSING PROGRESS NOTE Legal hold: 1370 Client on involuntary status for 1370 Report received from RN with use of SBAR Why are they here: The patient is a 34 year old female admitted on a 1370 from the [facility]. She has a history of meth induced psychosis and multiple arrests and time spent in [facility]. She is here to determine competency to stand trial. She was pleasant and cooperative upon admission. Denies SI/HI/ and all hallucinations and does not appear to be responding to internal stimuli. Assessment What has happened this shift: Received Pt sleeping w/o distress in her room at beginning of shift. Pt cooperative with vitals and AM assessments. Pt ate breakfast, took AM meds except clyndamycin carmela., and returned to bed for a nap and slept most of the morning. She woke for lunch and remained in community room and rec. Room watching TV. Pt used nicotine Lozenges throughout the day. She remains pleasant and cooperative, and appreciative of when staff gets her a drink or meets a need. She continues to appear bored at times and denies SI/HI/AH/VH. S/I, H/I: Pt denies A/VH: Pt denies Sleep: Slept most of morning ADL's: Independent Group attendance: No groups today Were meds taken: Yes Any med S/E: None observed or noted Mental Status Exam Appearance: Neat and clean in own clothes Eye contact: Good Behavior: Pleasant, cooperative, mostly isolative to self Speech: Soft, clear, minimal. Mood: Euthymic Affect: Blunted Thought process: Linear Thought Content: Meeting needs Cognition: A/O X4 Insight: Poor Judgment: Fair Interventions PRN's used: nicotine lozenges Therapeutic interventions: 1:1 assessment, therapeutic communication, active listening, medication administration/education/monitoring, encouragement to attend groups, maintained Q 15 minute safety checks. Restraints/seclusion/emergency medication: N/A Justification of Continued Inpatient Treatment: Patient is being assessed for competency to stand trial.
[2020-03-03] MEDS: NICOTINE POLACRILEX 2 MG LOZENGE BC PRN ×2 (16:46→18:58)
[2020-03-03] MEDS: mag hydrox/Alum hydrox/simeth 30ml oral suspension PO PRN (16:47)
[2020-03-03] MEDS: hydrOXYzine 25 MG tablet PO PRN (16:47)
[2020-03-03 19:00] VITALS: BP 102/63
--- NOTE | 2020-03-03 23:41 | NUR ---
Nursing Progress Note: Legal hold: 1370 Client on involuntary status for 1370 Report received from GRISELDA Benson with use of SBAR Why are they here: The patient is a 34 year old female admitted on a 1370 from the correction. She has a history of meth induced psychosis and multiple arrests and time spent in correction. She is here to determine competency to stand trial. She was pleasant and cooperative upon admission. Denies SI/HI/ and all hallucinations and does not appear to be responding to internal stimuli. Assessment What has happened this shift: The patient was seen in the rec room watching tv with other clients. She agreed to 1:1 at bedside. She continues to be guarded with information. The patient answers questions appropriately, and makes no delusional statements. She denies depression, SI/HI, and any AV/H. She accepts her HS meds, but declines antibiotic face cream. Continues to c/o indigestion, and requests Maalox often. S/I, H/I: Denies A/VH: Denies Sleep: see sleep assessment ADL's: Independent Group attendance: No Were meds taken: Yes Any med S/E: None reported or observed. Mental Status Exam Appearance: Neat and clean in own clothes Eye contact: fair Behavior: quiet, mostly isolative to self, guarded Speech: Soft, minimal. Mood: Euthymic Affect: Blunted Thought process: Linear Thought Content: getting needs met Cognition: Alert Insight: Poor Judgment: Fair Interventions PRN's used: Maalox Therapeutic interventions: 1:1 assessment, therapeutic communication, active listening, medication administration/education/monitoring, encouragement to attend groups, maintained Q 15 minute safety checks. Restraints/seclusion/emergency medication: N/A Justification of Continued Inpatient Treatment: Patient is being assessed for competency to stand trial.
[2020-03-04 07:31] VITALS: BP 85/43
[2020-03-04] MEDS: olanzapine 10mg tablet PO SCH ×2 (07:52→20:01)
[2020-03-04] MEDS: hydrOXYzine 25 MG tablet PO PRN (07:53)
[2020-03-04] MEDS: nicotine 14mg patch - 24hr TD SCH (07:56)
[2020-03-04] MEDS: clindamycin 1% topical susp 60ml bottle TP SCH ×2 (08:06→20:00)
[2020-03-04] MEDS: spironolactone 50 MG tablet PO SCH (08:30)
[2020-03-04] MEDS: NICOTINE POLACRILEX 2 MG LOZENGE BC PRN ×2 (13:05→15:34)
--- NOTE | 2020-03-04 13:35 | NUR ---
NURSING PROGRESS NOTE: Legal hold: 1370 Client on involuntary status for 1370 Report received from Rosa Kilgore RN with use of SBAR Why are they here: The patient is a 34 year old female admitted on a 1370 from the shelter. She has a history of meth induced psychosis and multiple arrests and time spent in shelter. She is here to determine competency to stand trial. She was pleasant and cooperative upon admission. Denies SI/HI/ and all hallucinations and does not appear to be responding to internal stimuli. Assessment What has happened this shift: Pt was up for breakfast and cooperative with medications. Held Aldactone per parameters for an asymptomatic BP of 85/43. Pt denied depression, SI/HI/AH/VH. Pt did c/o some "cold symptoms...a stuffy and runny nose." Encouraged pt to drink lots of water. S/I, H/I: Pt denies A/VH: Pt denies Sleep: Pt slept 7.25 hours last night per noc shift report. ADL's: Independent Group attendance: No Were meds taken: Yes Any med S/E: None noted or reported. Mental Status Exam Appearance: Pale woman with short hair and acne dressed in street clothes. Eye contact: Good Behavior: Pleasant, cooperative, mostly isolative to self Speech: Soft, clear, minimal. Mood: Euthymic Affect: Blunted Thought process: Linear Thought Content: Not feeling well today, has cold symptoms. Cognition: A/O X4 Insight: Poor Judgment: Fair Interventions PRN's used: nicotine lozenge Therapeutic interventions: 1:1 assessment, therapeutic communication, active listening, medication administration/education/monitoring, encouragement to attend groups, maintained Q 15 minute safety checks. Restraints/seclusion/emergency medication: N/A Justification of Continued Inpatient Treatment: Patient is being assessed for competency to stand trial.
[2020-03-04 20:00] VITALS: BP 95/58
--- NOTE | 2020-03-05 01:28 | NUR ---
Nursing Progress Note: Legal hold: 1370 Client on involuntary status for 1370 Report received from GRISELDA Benson with use of SBAR Why are they here: The patient is a 34 year old female admitted on a 1370 from the alf. She has a history of meth induced psychosis and multiple arrests and time spent in alf. She is here to determine competency to stand trial. She was pleasant and cooperative upon admission. Denies SI/HI/ and all hallucinations and does not appear to be responding to internal stimuli. Assessment What has happened this shift: The patient was sleeping at shift change. Woke her up for 1:1, but she declined, "I'm just not feeling up to it today." She seemed rather subdued and withdrawn. She made no complaints and denied SI/HI, or AV/H. The patient got up for a snack, but went right back to her bed. S/I, H/I: Denies A/VH: Denies Sleep: see sleep assessment ADL's: Independent Group attendance: No Were meds taken: Yes Any med S/E: None reported or observed. Mental Status Exam Appearance: Short haired lady with pale skin and acne. wears appropriate street clothes. Eye contact: fair Behavior: quiet, mostly isolative to self, guarded, withdrawn Speech: Soft, minimal. Mood: Euthymic Affect: Blunted Thought process: Linear Thought Content: getting needs met Cognition: Alert Insight: Poor Judgment: Fair Interventions PRN's used: None Therapeutic interventions: 1:1 assessment, therapeutic communication, active listening, medication administration/education/monitoring, encouragement to attend groups, maintained Q 15 minute safety checks. Restraints/seclusion/emergency medication: N/A Justification of Continued Inpatient Treatment: Patient is being assessed for competency to stand trial.
[2020-03-05 07:15] VITALS: BP 100/61
[2020-03-05] MEDS: clindamycin 1% topical susp 60ml bottle TP SCH ×2 (07:58→20:00)
[2020-03-05] MEDS: hydrOXYzine 25 MG tablet PO PRN ×2 (08:12→20:15)
[2020-03-05] MEDS: NICOTINE POLACRILEX 2 MG LOZENGE BC PRN ×4 (08:12→19:45)
[2020-03-05] MEDS: olanzapine 10mg tablet PO SCH ×2 (08:12→20:15)
[2020-03-05] MEDS: nicotine 14mg patch - 24hr TD SCH (08:15)
[2020-03-05] MEDS: spironolactone 50 MG tablet PO SCH (08:16)
[2020-03-05] MEDS: mag hydrox/Alum hydrox/simeth 30ml oral suspension PO PRN ×3 (12:31→19:45)
--- NOTE | 2020-03-05 13:26 | NUR ---
NURSING PROGRESS NOTE: Legal hold: 1370 Client on involuntary status for 1370 Report received from Rosa Kilgore RN with use of SBAR Why are they here: The patient is a 34 year old female admitted on a 1370 from the retirement. She has a history of meth induced psychosis and multiple arrests and time spent in retirement. She is here to determine competency to stand trial. She was pleasant and cooperative upon admission. Denies SI/HI/ and all hallucinations and does not appear to be responding to internal stimuli. Assessment What has happened this shift: Pt was up early asking the PCT's if she could look though the clothing closet. PCT's report she frequently requests this and she was told that she has enough outfit changes. Pt requested a nicotine lozenge immediately before breakfast. Encouraged pt to wait until after she had eaten as the meal trays would be here any minute. Pt reported feeling "better" today. She showered and dressed in clean clothes after breakfast. Pt's BP has been running low. Aldactone 50 mg was held yesterday and today. Discussed this with Eric VALENTIN. The Aldactone is being prescribed for her acne. Notified PA that her blood pressures have been trending low and the med had been held X 2 days. PA ordered to decrease Aldactone dosage to 25 mg PO daily. Pt denied depression, SI/HI/AH/VH. When asked about anxiety pt replied, "a little...can I get a PRN? The green ones?" Pt requested PRN Maalox before lunch and it was given at 1231. Pt also again asked for a nicotine lozenge immediately prior to lunch. As the lozenges take 15 minutes or so to dissolve, again asked pt to wait until after lunch for another lozenge. PCT reported that patient had asked several of her peers for items off of their lunch trays when the food arrived. Explanation of unit rules and limit setting utilized. PCT reported that she had done this yesterday as well and had ended up with around 4 or 5 little side salads. S/I, H/I: Pt denies A/VH: Pt denies Sleep: Pt slept 9 hours last night per noc shift report, pt naps for much of the morning. ADL's: Independent Group attendance: No Were meds taken: Yes Any med S/E: None noted or reported. Mental Status Exam Appearance: Pale woman with short hair and acne dressed in street clothes. Eye contact: Good Behavior: Pleasant, cooperative, mostly isolative to self, can be needy with multiple requests at times, asks other patients for food off of their lunch trays. Speech: Soft, clear, minimal. Mood: Anxious Affect: Blunted Thought process: Linear Thought Content: Wants more clothes and food, she is feeling better today. Cognition: A/O X4 Insight: Poor Judgment: Fair Interventions PRN's used: Atarax 75 mg and a nicotine lozenge @ 0812, Maalox, nicotine lozenges Therapeutic interventions: 1:1 assessment, therapeutic communication, active listening, medication administration/education/monitoring, encouragement to attend groups, limit setting, distraction, redirection, maintained Q 15 minute safety checks. Restraints/seclusion/emergency medication: N/A Justification of Continued Inpatient Treatment: Patient is being assessed for competency to stand trial. Addendum: 03/05/20 at 1345 by Jamila Woodson RN (Lee) Pt has new orders for Keflex 500 mg PO Q6H for acne and Culturelle PO BID.
[2020-03-05] MEDS: cephalexin 500mg capsule PO SCH ×2 (13:48→20:15)
--- NOTE | 2020-03-05 16:26 | NUR ---
Reassessment: Pt PO 100% avg meals meeting needs. Last BM 03/04. Patient gained 12 lbs in one week on standing scale from 02/15-02/22? Possible weight error? 12 lbs in one week seems unlikely even with psych meds. Will continue to monitor. Rec: 1. continue regular diet 2. bowel care per rx 3. wt per rx Addendum: 03/05/20 at [address] Amended: Links added.
[2020-03-05] MEDS: lactobacillus rhamnosus 10,000 MMU CELLS/CAPSULE PO SCH (20:14)
[2020-03-05 20:23] VITALS: BP 102/62
--- NOTE | 2020-03-06 00:38 | NUR ---
Nursing Progress Note: Legal hold: 1370 Client on involuntary status for 1370 Report received from GRISELDA Duke with use of SBAR Why are they here: The patient is a 34 year old female admitted on a 1370 from the senior living. She has a history of meth induced psychosis and multiple arrests and time spent in senior living. She is here to determine competency to stand trial. She was pleasant and cooperative upon admission. Denies SI/HI/ and all hallucinations and does not appear to be responding to internal stimuli. Assessment What has happened this shift: The patient was in the rec room watching tv. She appears clean and wearing new clothes. Her acne looks red and inflamed. she has not been using her antibiotic face cream. The patient instantly asked for Maalox and a nicotine lozenge. It had only been 3 hours since last Maalox. She said her mood is "fine," as she laid there in the rec room watching a video, "it's about anxiety." Every answer was abrupt, and she didn't want to answer. She asked for multiple snacks through the evening, but was denied. The patient was compliant with HS medications, and went to bed soon after. S/I, H/I: Denies A/VH: Denies Sleep: see sleep assessment ADL's: Independent Group attendance: No Were meds taken: Yes Any med S/E: None reported or observed. Mental Status Exam Appearance: Short haired lady with pale skin and acne. wears appropriate street clothes. Eye contact: fair Behavior: quiet, mostly isolative to self, guarded, withdrawn, blunt Speech: Soft, minimal. Mood: Euthymic Affect: Blunted Thought process: Linear Thought Content: getting needs met Cognition: Alert Insight: Poor Judgment: Fair Interventions PRN's used: Maalox, Nicotine lozenges. Therapeutic interventions: 1:1 assessment, therapeutic communication, active listening, medication administration/education/monitoring, encouragement to attend groups, maintained Q 15 minute safety checks. Restraints/seclusion/emergency medication: N/A Justification of Continued Inpatient Treatment: Patient is being assessed for competency to stand trial.
[2020-03-06] MEDS: cephalexin 500mg capsule PO SCH ×4 (02:00→19:33)
[2020-03-06] MEDS: clindamycin 1% topical susp 60ml bottle TP SCH ×2 (07:29→20:00)
[2020-03-06] MEDS: nicotine 14mg patch - 24hr TD SCH (07:29)
[2020-03-06] MEDS: lactobacillus rhamnosus 10,000 MMU CELLS/CAPSULE PO SCH ×2 (07:29→19:33)
[2020-03-06] MEDS: olanzapine 10mg tablet PO SCH ×2 (07:30→19:33)
[2020-03-06] MEDS: mag hydrox/Alum hydrox/simeth 30ml oral suspension PO PRN (07:36)
[2020-03-06] MEDS: NICOTINE POLACRILEX 2 MG LOZENGE BC PRN ×4 (07:37→19:34)
[2020-03-06] MEDS: spironolactone 25 MG tablet PO SCH (07:37)
[2020-03-06 08:00] VITALS: BP 112/68
--- NOTE | 2020-03-06 08:57 | NUR ---
[facility] Interview Scheduled [facility] interview for Wednesday03/11/20 at 9:30 AM. JAILENE Bolton
[2020-03-06] MEDS: magnesium hydroxide 30ml (MOM) UD suspension PO PRN ×2 (11:05→19:34)
--- NOTE | 2020-03-06 12:00 | NUR ---
NURSING PROGRESS NOTE: Legal hold: 137 Client on involuntary status for 137 Report received from GRISELDA Wang with use of SBAR Why are they here: The patient is a 34 year old female admitted on a 1370 from the care home. She has a history of meth induced psychosis and multiple arrests and time spent in care home. She is here to determine competency to stand trial. She was pleasant and cooperative upon admission. Denies SI/HI/ and all hallucinations and does not appear to be responding to internal stimuli. Assessment What has happened this shift: In bed at change of shift, comes to breakfast and is med compliant. Well groomed, wears makeup and cares about her clothes. In morning it was reported to this nurse patient was staff splitting, asking for something and told no then going to another tech to ask for same thing and it was reported she had been doing this frequently. When questioned about this she did not know the term "staff splitting", it was explained to her and she stated she understood and would not do it anymore. When asked about her court proceedings stated, "my Fisheries Specialist told me not to worry about it." She is hoping to go to the [facility] and has an interview on 03/11. S/I, H/I: Pt denies A/VH: Pt denies Sleep: naps ADL's: Independent Group attendance: yes Were meds taken: Yes Any med S/E: None noted or reported. Mental Status Exam Appearance: neat and clean Eye contact: fair Behavior: Pleasant, cooperative, some guarding Speech: Soft, clear, minimal. Mood: depressed Affect: Blunted Thought process: Linear Thought Content: discharge Cognition: Alert Insight: Poor Judgment: Fair Interventions PRN's used: MOM, Maalox, Suhail Laurie Therapeutic interventions: 1:1 assessment, therapeutic communication, active listening, medication administration/education/monitoring, encouragement to attend groups, limit setting, distraction, redirection, maintained Q 15 minute safety checks. Restraints/seclusion/emergency medication: N/A Justification of Continued Inpatient Treatment: Patient is being assessed for competency to stand trial.
[2020-03-06 20:43] VITALS: BP 102/60
--- NOTE | 2020-03-06 23:10 | NUR ---
Nursing Progress Note: Legal hold: 1370 Client on involuntary status for 1370 Report received from GRISELDA Marino with use of SBAR Why are they here: The patient is a 34 year old female admitted on a 1370 from the [facility]. She has a history of meth induced psychosis and multiple arrests and time spent in [facility]. She is here to determine competency to stand trial. She was pleasant and cooperative upon admission. Denies SI/HI/ and all hallucinations and does not appear to be responding to internal stimuli. Assessment What has happened this shift: Pt is walking the unit at shift change and comes into the observation room aggressively asking for milk of magnesia. PT reminded she cannot be in the observation room, she stands by the door and requests the MOM again. Shirt Sewer reminds her that she has had a dose today and it cannot be given yet because it has been 12 hours. Pt verbalizes understanding. Shirt Sewer asks when the last time she had a BM was, she responds, "yesterday." She denies SI/HI/AH/VH. S/I, H/I: Denies A/VH: Denies Sleep: see sleep assessment ADL's: Independent Group attendance: No Were meds taken: Yes Any med S/E: None reported or observed. Mental Status Exam Appearance: WNL Eye contact: fair Behavior: quiet, mostly isolative to self, guarded, withdrawn, blunt Speech: Soft, minimal. Mood: Euthymic Affect: Blunted Thought process: Linear Thought Content: getting needs met Cognition: Alert Insight: Poor Judgment: Fair Interventions PRN's used: Nicotine lozenge Therapeutic interventions: 1:1 assessment, therapeutic communication, active listening, medication administration/education/monitoring, encouragement to attend groups, maintained Q 15 minute safety checks. Restraints/seclusion/emergency medication: N/A Justification of Continued Inpatient Treatment: Patient is being assessed for competency to stand trial.
[2020-03-07] MEDS: cephalexin 500mg capsule PO SCH ×4 (05:01→21:17)
[2020-03-07 07:43] VITALS: BP 96/57
[2020-03-07] MEDS: clindamycin 1% topical susp 60ml bottle TP SCH ×2 (07:58→20:00)
[2020-03-07] MEDS: spironolactone 25 MG tablet PO SCH (07:59)
[2020-03-07] MEDS: olanzapine 10mg tablet PO SCH ×2 (07:59→21:17)
[2020-03-07] MEDS: nicotine 14mg patch - 24hr TD SCH (07:59)
[2020-03-07] MEDS: lactobacillus rhamnosus 10,000 MMU CELLS/CAPSULE PO SCH ×2 (08:00→21:17)
[2020-03-07] MEDS: NICOTINE POLACRILEX 2 MG LOZENGE BC PRN ×2 (11:40→16:52)
[2020-03-07] MEDS ORDERED: polyethylene glycol 3350 17gm powd pack PO ONE (11:45)
--- NOTE | 2020-03-07 12:09 | NUR ---
COURT 03/14/20 AT 8:30 AM Spoke to Jackie's Principal Examiner, Teto Fernie (ph# [phone]), who reported Jackie has court on 03/14/20. Discussed possibility of Jackie returning to [facility] voluntarily in order to transition to [facility]. Informed him the [facility] is responsible for transporting her to court. Global Risk Management Director will inquire how to transport Jackie back from court as the [facility] will not transport back to [facility] afterwards. Met with Jackie and discussed the option of returning to [facility] voluntarily in order to transition to [facility]. She was agreeable to this plan. Requested a PPD get placed for [facility] admit. JAILENE Bolton
[2020-03-07] MEDS ORDERED: tuberculin, purif. prot. deriv. 5 units/0.1ml ID ONE (13:35)
--- NOTE | 2020-03-07 13:37 | NUR ---
NURSING PROGRESS NOTE: Legal hold: 1370 Client on involuntary status for 137 Report received from GRISELDA Wang with use of SBAR Why are they here: The patient is a 34 year old female admitted on a 1370 from the long-term. She has a history of meth induced psychosis and multiple arrests and time spent in long-term. She is here to determine competency to stand trial. She was pleasant and cooperative upon admission. Denies SI/HI/ and all hallucinations and does not appear to be responding to internal stimuli. Assessment What has happened this shift: Up for breakfast, med compliant , cooperative and polite.. Patient is doing well and has been deemed competent to go to court proceedings which will be on 03/14 at 0830. The plan is for patient to go to court and then return to [facility] Voluntarily and then transition to [facility]. She is agreeable to this plan per SW. C/O hard stools and was given Miralax. No other changes or problems today. Engages in milieu. S/I, H/I: Pt denies A/VH: Pt denies Sleep: naps ADL's: Independent Group attendance: yes Were meds taken: Yes Any med S/E: None noted or reported. Mental Status Exam Appearance: neat and clean Eye contact: fair Behavior: Pleasant, cooperative, some guarding Speech: Soft, clear, minimal. Mood: euthymic Affect: Blunted Thought process: Linear Thought Content: discharge Cognition: Alert Insight: fair Judgment: Fair Interventions PRN's used: Suhail Laurie, Miralax Therapeutic interventions: 1:1 assessment, therapeutic communication, active listening, medication administration/education/monitoring, encouragement to attend groups, limit setting, distraction, redirection, maintained Q 15 minute safety checks. Restraints/seclusion/emergency medication: N/A Justification of Continued Inpatient Treatment: Patient is being assessed for competency to stand trial.
[2020-03-07] MEDS: hydrOXYzine 25 MG tablet PO PRN (16:51)
[2020-03-07] MEDS: magnesium hydroxide 30ml (MOM) UD suspension PO PRN (16:52)
[2020-03-07 19:00] VITALS: BP 104/56
--- NOTE | 2020-03-08 01:11 | NUR ---
NURSING PROGRESS NOTE Legal hold: 1370 Client on involuntary status for 1370 Report received from Tristen VILLALOBOS with use of SBAR Why are they here: The patient is a 34 year old female admitted on a 1370 from the [facility]. She has a history of meth induced psychosis and multiple arrests and time spent in [facility]. She is here to determine competency to stand trial. She was pleasant and cooperative upon admission. Denies SI/HI/ and all hallucinations and does not appear to be responding to internal stimuli. Assessment What has happened this shift: The patient was observed out on the unit, in the community room with peers, although not socializing but sits alone in the rec room with a blanket wrapped around her watching TV. She eats snack and returns to her room. She is cooperative with 1:1 assessment and denies any discomfort at this time. She also denies SI/HI/AH/VH. She is medication compliant and falls asleep without issue. S/I, H/I: Denies. A/VH: Denies. Sleep: See sleep assessment. ADL's: Independent Group attendance: No night groups Were meds taken: Yes. Any med S/E: None observed or reported. Mental Status Exam Appearance:WNL Eye contact: Good Behavior: Cooperative, guarded, withdrawn. Speech: Clear, but minimal. Mood: withdrawn Affect:flat Thought process: Linear Thought Content: Getting needs met. Cognition: A&O X4 Insight: Poor Judgment: Fair Interventions PRN's used: None Therapeutic interventions: Maintained a safe and therapeutic environment, provided clear and simple instructions, encouraged independent performance of ADLs and participation on the unit, ,medication administration/education/monitoring, provided active listening, maintained Q 15min safety checks. Restraints/seclusion/emergency medication: N/A Justification of Continued Inpatient Treatment: Patient is being assessed for competency to stand trial.
[2020-03-08] MEDS: cephalexin 500mg capsule PO SCH ×4 (03:15→20:57)
[2020-03-08] MEDS: nicotine 14mg patch - 24hr TD SCH (07:18)
[2020-03-08] MEDS: olanzapine 10mg tablet PO SCH ×2 (07:18→20:57)
[2020-03-08] MEDS: clindamycin 1% topical susp 60ml bottle TP SCH ×2 (07:18→20:00)
[2020-03-08] MEDS: spironolactone 25 MG tablet PO SCH (07:19)
[2020-03-08] MEDS: lactobacillus rhamnosus 10,000 MMU CELLS/CAPSULE PO SCH ×2 (07:20→20:57)
[2020-03-08 08:00] VITALS: BP 107/51
[2020-03-08] MEDS: NICOTINE POLACRILEX 2 MG LOZENGE BC PRN ×2 (13:02→17:17)
--- NOTE | 2020-03-08 14:47 | NUR ---
C/O NOT FEELING WELL Patient complains of not feeling well today which started around breakfast time. Mild aches and slight congestion. No loss of taste or smell. No N/V VS= 98.3, 90, 16, 91/48, 97% on RA.
--- NOTE | 2020-03-08 14:55 | NUR ---
READ PPD ON 03/10 @ 2659, DOCUMENT IN FRONT OF CHART
--- NOTE | 2020-03-08 14:57 | NUR ---
NURSING PROGRESS NOTE: Legal hold: 1370 Client on involuntary status for 137 Report received from GRISELDA Hernandez with use of SBAR Why are they here: The patient is a 34 year old female admitted on a 1370 from the [facility]. She has a history of meth induced psychosis and multiple arrests and time spent in intermediate. She is here to determine competency to stand trial. She was pleasant and cooperative upon admission. Denies SI/HI/ and all hallucinations and does not appear to be responding to internal stimuli. Assessment What has happened this shift: Patient feeling unwell today, c/o mild aches and mild chest congestion. VSS. Mostly rested today got up for meals and snacks only. Placed PPD to be read on 03/10. Euthymic, blunted and cooperative. Constipation resolved. S/I, H/I: Pt denies A/VH: Pt denies Sleep: naps ADL's: Independent Group attendance: no Were meds taken: Yes Any med S/E: None noted or reported. Mental Status Exam Appearance: neat and clean Eye contact: fair Behavior: Pleasant, cooperative, some guarding Speech: Soft, clear, minimal. Mood: euthymic Affect: Blunted Thought process: Linear Thought Content: discharge, and not feeling well Cognition: Alert Insight: fair Judgment: Fair Interventions PRN's used: Suhail Laurie Therapeutic interventions: 1:1 assessment, therapeutic communication, active listening, medication administration/education/monitoring, encouragement to attend groups, limit setting, distraction, redirection, maintained Q 15 minute safety checks. Restraints/seclusion/emergency medication: N/A Justification of Continued Inpatient Treatment: Patient is being assessed for competency to stand trial.
[2020-03-08] MEDS: mag hydrox/Alum hydrox/simeth 30ml oral suspension PO PRN (17:16)
[2020-03-08] MEDS: hydrOXYzine 25 MG tablet PO PRN (17:17)
[2020-03-08 19:00] VITALS: BP 102/55
[2020-03-09] MEDS: cephalexin 500mg capsule PO SCH ×4 (02:58→19:15)
--- NOTE | 2020-03-09 05:32 | NUR ---
NURSING PROGRESS NOTE: Legal hold: 1370 Client on involuntary status for 1370 Report received from GRISELDA Ramon with use of SBAR Why are they here: The patient is a 34 year old female admitted on a 1370 from the senior living. She has a history of meth induced psychosis and multiple arrests and time spent in senior living. She is here to determine competency to stand trial. She was pleasant and cooperative upon admission. Denies SI/HI/ and all hallucinations and does not appear to be responding to internal stimuli. Assessment What has happened this shift: Patient observed laying in bed at the beginning of shift. Pleasant and cooperative with care; compliant with most medication. Patient refused Clindamycin cream. Patient denies SI, HI, A/VH and denies depression. Patient reports feeling like she is running a temperature; denies soar throat, congestion, diarrhea and n/v. Temperature remains WNL. She ate HS snack in her room and quickly retired to bed. Observed sleeping and does not appear to be having difficulty. S/I, H/I: Denies A/VH: Denies Sleep: Refer to sleep assessment ADL's: Independent Group attendance: NA Were meds taken: Yes Any med S/E: None observed or reported. Mental Status Exam Appearance: Neat, clean, appropriate. Eye contact: Fair Behavior: Isolative, pleasant and cooperative Speech: Soft, clear, minimal. Mood: Fatigued Affect: Blunted Thought process: Poverty of speech Thought Content: Feeling like she's running a temperature Cognition: Intact Insight: Fair Judgment: Fair Interventions PRN's used: None Therapeutic interventions: 1:1 assessment, therapeutic communication, active listening, medication administration/education/monitoring, encouragement to attend groups, limit setting, distraction, redirection, maintained Q 15 minute safety checks. Restraints/seclusion/emergency medication: N/A Justification of Continued Inpatient Treatment: Patient is being assessed for competency to stand trial.
[2020-03-09 07:00] VITALS: BP 93/54
[2020-03-09] MEDS: olanzapine 10mg tablet PO SCH ×2 (08:00→19:15)
[2020-03-09] MEDS: clindamycin 1% topical susp 60ml bottle TP SCH ×2 (08:03→19:16)
[2020-03-09] MEDS: nicotine 14mg patch - 24hr TD SCH (08:03)
[2020-03-09] MEDS: lactobacillus rhamnosus 10,000 MMU CELLS/CAPSULE PO SCH ×2 (08:04→19:15)
[2020-03-09] MEDS: spironolactone 25 MG tablet PO SCH (08:30)
--- NOTE | 2020-03-09 12:09 | NUR ---
NURSING PROGRESS NOTE: Legal hold: 1370 Client on involuntary status for 1370 Report received from GRISELDA Hernandez with use of SBAR Why are they here: The patient is a 34 year old female admitted on a 1370 from the assisted. She has a history of meth induced psychosis and multiple arrests and time spent in assisted. She is here to determine competency to stand trial. She was pleasant and cooperative upon admission. Denies SI/HI/ and all hallucinations and does not appear to be responding to internal stimuli. Assessment What has happened this shift: Received pt sleeping in bed at shift change. Patient gets up for breakfast and takes medications without incident. Patient goes back to bed and is sleeping at present. Up for meals and snacks. S/I, H/I: Pt denies A/VH: Pt denies Sleep: naps ADL's: Independent Group attendance: no Were meds taken: Yes Any med S/E: None noted or reported. Mental Status Exam Appearance: neat and clean in casual attire. Eye contact: fair Behavior: Pleasant, cooperative, some guarding Speech: Soft, clear, minimal. Mood: euthymic Affect: Blunted Thought process: Linear Thought Content: discharge. Cognition: Alert Insight: fair Judgment: Fair Interventions PRN's used: None. Therapeutic interventions: 1:1 assessment, therapeutic communication, active listening, medication administration/education/monitoring, encouragement to attend groups, limit setting, distraction, redirection, maintained Q 15 minute safety checks. Restraints/seclusion/emergency medication: N/A Justification of Continued Inpatient Treatment: Patient is being assessed for competency to stand trial.
[2020-03-09] MEDS: NICOTINE POLACRILEX 2 MG LOZENGE BC PRN ×3 (15:36→20:15)
[2020-03-09] MEDS: magnesium hydroxide 30ml (MOM) UD suspension PO PRN (15:37)
[2020-03-09] MEDS: hydrOXYzine 25 MG tablet PO PRN (18:10)
[2020-03-09 19:00] VITALS: BP 100/63
[2020-03-10] MEDS: cephalexin 500mg capsule PO SCH ×2 (02:52→07:53)
--- NOTE | 2020-03-10 04:49 | NUR ---
NURSING PROGRESS NOTE: Legal hold: 1370 Client on involuntary status for 1370 Report received from GRISELDA Ramon with use of SBAR Why are they here: The patient is a 34 year old female admitted on a 1370 from the [facility]. She has a history of meth induced psychosis and multiple arrests and time spent in [facility]. She is here to determine competency to stand trial. She was pleasant and cooperative upon admission. Denies SI/HI/ and all hallucinations and does not appear to be responding to internal stimuli. Assessment What has happened this shift: Patient observed talking on the phone at the beginning of shift; appeared to be enjoying the conversation. Pleasant and cooperative with all care; compliant with medication. PRN Nicotine lozenge provided upon request. Patient denies all MH symptoms and does not appear to be responding to IS. Patient observed socializing with peer, making a lounge seat from chairs and wrapped up in a blanket watching movies with peer. Patient participated in HS snack prior to bed. Observed sleeping and does not appear to be having difficulty. S/I, H/I: Denies A/VH: Denies Sleep: Refer to sleep assessment ADL's: Independent Group attendance: NA Were meds taken: Yes Any med S/E: None observed or reported. Mental Status Exam Appearance: Neat, clean, appropriate. Eye contact: Fair Behavior: Socializing, watching movies in the community room, pleasant and cooperative Speech: Soft, clear, minimal. Mood: Euthymic Affect: Bright Thought process: Linear Thought Content: Meeting needs Cognition: Intact Insight: Fair Judgment: Fair Interventions PRN's used: Nicotine lozenge Therapeutic interventions: 1:1 assessment, therapeutic communication, active listening, medication administration/education/monitoring, encouragement to attend groups, limit setting, distraction, redirection, maintained Q 15 minute safety checks. Restraints/seclusion/emergency medication: N/A Justification of Continued Inpatient Treatment: Patient is being assessed for competency to stand trial.
[2020-03-10 07:25] VITALS: BP 94/63
[2020-03-10] MEDS: clindamycin 1% topical susp 60ml bottle TP SCH ×2 (07:51→20:14)
[2020-03-10] MEDS: olanzapine 10mg tablet PO SCH ×2 (07:53→20:12)
[2020-03-10] MEDS: lactobacillus rhamnosus 10,000 MMU CELLS/CAPSULE PO SCH ×2 (07:53→20:12)
[2020-03-10] MEDS: nicotine 14mg patch - 24hr TD SCH (07:54)
[2020-03-10] MEDS: spironolactone 25 MG tablet PO SCH (08:20)
--- NOTE | 2020-03-10 13:18 | NUR ---
NURSING PROGRESS NOTE: Legal hold: 1370 Client on involuntary status for 1370 Report received from Rosa Kilgore RN with use of SBAR Why are they here: The patient is a 34 year old female admitted on a 1370 from the detention. She has a history of meth induced psychosis and multiple arrests and time spent in detention. She is here to determine competency to stand trial. She was pleasant and cooperative upon admission. Denies SI/HI/ and all hallucinations and does not appear to be responding to internal stimuli. Assessment What has happened this shift: Pt was up for breakfast and cooperative with morning medications. Pt denied depression, anxiety, SI/HI/AH/VH. Held pt's Aldactone for decreased BP of 94/63. Pt has a [facility] interview scheduled for tomorrow 03/11/[address] date is 03/14/20 at 0830. Will read pt's PPD today after 1440. Pt slept for most of the morning, out of room for meals and snacks only. S/I, H/I: Pt denies A/VH: Pt denies Sleep: Pt slept 6.75 hours last night per noc shift report, pt napped for most of the morning. ADL's: Independent Group attendance: No Were meds taken: Yes Any med S/E: None noted or reported. Mental Status Exam Appearance: Neat, clean, appropriate. Eye contact: Fair Behavior: Mostly isolative to self, guarded but cooperative. Speech: Soft, clear, minimal. Mood: Euthymic Affect: Blunted Thought process: Linear Thought Content: Focused on pending court date and discharge. Cognition: A/O X 4 Insight: Poor Judgment: Fair Interventions PRN's used: None Therapeutic interventions: 1:1 assessment, therapeutic communication, active listening, medication administration/education/monitoring, encouragement to attend groups, limit setting, distraction, redirection, maintained Q 15 minute safety checks. Restraints/seclusion/emergency medication: N/A Justification of Continued Inpatient Treatment: Pt has been deemed competent to attend trial, court date pending 03/14/20. Addendum: 03/10/20 at 1435 by Jamila Woodson RN (Lee) Pt's Peter was D/c'd. Addendum: 03/10/20 at 1509 by Jamila Woodson RN (Lee) Read PPD left forearm at 1507; negative.
[2020-03-10] MEDS: NICOTINE POLACRILEX 2 MG LOZENGE BC PRN ×2 (15:22→18:31)
[2020-03-10] MEDS: magnesium hydroxide 30ml (MOM) UD suspension PO PRN (16:10)
[2020-03-10] MEDS: hydrOXYzine 25 MG tablet PO PRN (18:31)
[2020-03-10 20:00] VITALS: BP 105/66
--- NOTE | 2020-03-11 02:43 | NUR ---
Nursing Progress Note: Legal hold: 1370 Client on involuntary status for 1370 Report received from GRISELDA Ramon with use of SBAR Why are they here: The patient is a 34 year old female admitted on a 1370 from the group home. She has a history of meth induced psychosis and multiple arrests and time spent in group home. She is here to determine competency to stand trial. She was pleasant and cooperative upon admission. Denies SI/HI/ and all hallucinations and does not appear to be responding to internal stimuli. Assessment What has happened this shift: The patient was in the rec room watching tv. She has become more friendly to staff, but is still guarded with her responses. She is feeling anxious about her interview for the [facility], as well as her court hearing on this week. She has made no complaints, denies SI/HI or any AV/H. The patient spent the evening watching videos, she does not seek out companionship from other clients. Patient was compliant with HS meds, and only requested PRN lozenges. S/I, H/I: Denies A/VH: Denies Sleep: see sleep assessment ADL's: Independent Group attendance: No Were meds taken: Yes Any med S/E: None reported or observed. Mental Status Exam Appearance: Short haired lady with pale skin and acne. wears appropriate street clothes. Eye contact: fair Behavior: quiet, mostly isolative to self, guarded, withdrawn, blunt Speech: Soft, minimal. Mood: Euthymic Affect: Blunted Thought process: Linear Thought Content: getting needs met Cognition: Alert Insight: Poor Judgment: Fair Interventions PRN's used: Nicotine lozenges. Therapeutic interventions: 1:1 assessment, therapeutic communication, active listening, medication administration/education/monitoring, encouragement to attend groups, maintained Q 15 minute safety checks. Restraints/seclusion/emergency medication: N/A Justification of Continued Inpatient Treatment: Patient is being assessed for competency to stand trial.
[2020-03-11 08:00] VITALS: BP 86/58
[2020-03-11] MEDS: clindamycin 1% topical susp 60ml bottle TP SCH ×2 (08:00→20:08)
[2020-03-11] MEDS: nicotine 14mg patch - 24hr TD SCH (08:03)
[2020-03-11] MEDS: lactobacillus rhamnosus 10,000 MMU CELLS/CAPSULE PO SCH ×2 (08:03→20:08)
[2020-03-11] MEDS: olanzapine 10mg tablet PO SCH ×2 (08:03→20:08)
[2020-03-11] MEDS: spironolactone 25 MG tablet PO SCH (09:20)
[2020-03-11] MEDS: NICOTINE POLACRILEX 2 MG LOZENGE BC PRN ×4 (09:22→20:08)
--- NOTE | 2020-03-11 09:41 | NUR ---
ACCEPTED AT [facility] Assisted Jackie with interviewing for [facility] via [employer] with Jose. She has been accepted. Jackie has court on (03/14/20). Talked to her about returning to [facility] voluntarily in order to assist her with [facility] admit. She was agreeable to this. JAILENE Bolton
--- NOTE | 2020-03-11 14:48 | NUR ---
NURSING PROGRESS NOTE Legal hold: 1370 Client on involuntary status for 1370 Report received from Tristen VILLALOBOS with use of SBAR Why are they here: The patient is a 34 year old female admitted on a 1370 from the senior living. She has a history of meth induced psychosis and multiple arrests and time spent in senior living. She is here to determine competency to stand trial. She was pleasant and cooperative upon admission. Denies SI/HI/ and all hallucinations and does not appear to be responding to internal stimuli. Assessment What has happened this shift: Received Pt sleeping w/o distress in her room at beginning of shift. Pt cooperative with vitals and AM assessments. Pt took AM meds w/o issue and routinely asks for nicotine lozenges and did request MOM at 1450 and when questioned about her having a BM yesterday, she stated, "trust me, I need it!" Pt is pleasant and cooperative. Pt has flat/depressed affect which is congruent with stated mood of depressed. Pt states she is depressed because, "I'm in this place" She napped and watched TV in Rec. room and overall guarded with others. Pt denies all MH symptoms. S/I, H/I: Pt denies A/VH: Pt denies Sleep: Napped in afternoon ADL's: Independent Group attendance: No Were meds taken: Yes Any med S/E: Pt c/o feeling tired. Mental Status Exam Appearance: Neat and clean in own clothes Eye contact: Good Behavior: Pleasant, cooperative, mostly isolative to self, sits and watches TV in rec room or community room. Speech: Soft, clear, minimal. Mood: Euthymic Affect: Blunted Thought process: Linear Thought Content: Wants to sleep. Feels bloated. Cognition: A/O X4 Insight: Poor Judgment: Fair Interventions PRN's used: nicotine lozenges, MOM Therapeutic interventions: 1:1 assessment, therapeutic communication, active listening, medication administration/education/monitoring, encouragement to attend groups, maintained Q 15 minute safety checks. Restraints/seclusion/emergency medication: N/A Justification of Continued Inpatient Treatment: Patient is being assessed for competency to stand trial.
[2020-03-11] MEDS: magnesium hydroxide 30ml (MOM) UD suspension PO PRN (14:52)
[2020-03-11] MEDS: hydrOXYzine 25 MG tablet PO PRN (17:16)
[2020-03-11 20:53] VITALS: BP 97/55
--- NOTE | 2020-03-12 05:19 | NUR ---
NURSING PROGRESS NOTE: Legal hold: 1370 Client on involuntary status for 1370 Report received from GRISELDA Ramon with use of SBAR Why are they here: The patient is a 34 year old female admitted on a 1370 from the long-term. She has a history of meth induced psychosis and multiple arrests and time spent in long-term. She is here to determine competency to stand trial. She was pleasant and cooperative upon admission. Denies SI/HI/ and all hallucinations and does not appear to be responding to internal stimuli. Assessment What has happened this shift: Patient observed socializing with peers and watching TV in the community room. Pleasant and cooperative with care; compliant with medication. Patient denies SI, HI, A/VH. Participated in HS snack and remained in [address] room until retiring to bed. Observed sleeping and does not appear to be having difficulty. S/I, H/I: Denies A/VH: Denies Sleep: Refer to sleep assessment ADL's: Independent Group attendance: NA Were meds taken: Yes Any med S/E: None observed or reported. Mental Status Exam Appearance: Neat, clean, appropriate. Eye contact: Fair Behavior: Socializing, watching movies in the community room, pleasant and cooperative Speech: Soft, clear, minimal. Mood: Euthymic Affect: Bright Thought process: Linear Thought Content: Meeting needs, constipated Cognition: Intact Insight: Fair Judgment: Fair Interventions PRN's used: Nicotine lozenge Therapeutic interventions: 1:1 assessment, therapeutic communication, active listening, medication administration/education/monitoring, encouragement to attend groups, limit setting, distraction, redirection, maintained Q 15 minute safety checks. Restraints/seclusion/emergency medication: N/A Justification of Continued Inpatient Treatment: Patient is being assessed for competency to stand trial.
[2020-03-12 08:00] VITALS: BP 93/58
[2020-03-12] MEDS: clindamycin 1% topical susp 60ml bottle TP SCH ×2 (08:00→19:53)
[2020-03-12] MEDS: lactobacillus rhamnosus 10,000 MMU CELLS/CAPSULE PO SCH ×2 (08:09→19:53)
[2020-03-12] MEDS: nicotine 14mg patch - 24hr TD SCH (08:09)
[2020-03-12] MEDS: olanzapine 10mg tablet PO SCH ×2 (08:09→20:03)
[2020-03-12] MEDS: spironolactone 25 MG tablet PO SCH (08:12)
--- NOTE | 2020-03-12 11:39 | NUR ---
Reassessment: Pt continues with average 100% PO intake on regular diet meeting estimated nutrient needs. LBM 03/11, receiving PRN bowel care. No nutrition intervention warranted at this time. Will continue to follow. Rec: 1. continue regular diet 2. bowel care per rx 3. wt per rx Addendum: 03/12/20 at [address] Amended: Links added.
[2020-03-12] MEDS ORDERED: PALIPERIDONE 3 MG TAB.ER.24 PO ONE (12:00)
[2020-03-12] MEDS: magnesium hydroxide 30ml (MOM) UD suspension PO PRN (15:05)
[2020-03-12] MEDS: NICOTINE POLACRILEX 2 MG LOZENGE BC PRN ×3 (15:05→19:53)
[2020-03-12] MEDS: hydrOXYzine 25 MG tablet PO PRN (17:03)
--- NOTE | 2020-03-12 17:39 | NUR ---
NURSING PROGRESS NOTE Legal hold: 1370 Client on involuntary status for 1370 Report received from Kathleen VILLALOBOS with use of SBAR Why are they here: The patient is a 34 year old female admitted on a 1370 from the custodial. She has a history of meth induced psychosis and multiple arrests and time spent in custodial. She is here to determine competency to stand trial. She was pleasant and cooperative upon admission. Denies SI/HI/ and all hallucinations and does not appear to be responding to internal stimuli. Assessment What has happened this shift: Received Pt up and visible on the unit. Pt pleasant with am assessment and has bright affect. Pt endorses depression and later in the day, anxiety both r/t still being in here and also because she has gained weight in here and wants to lose the weight. Pt denies S.I. Pt denies hallucinations and does not exhibit any delusional thought patterns. S/I, H/I: Pt denies A/VH: Pt denies Sleep: Napped in afternoon ADL's: Independent Group attendance: No Were meds taken: Yes Any med S/E: Pt c/o feeling tired. Mental Status Exam Appearance: Neat and clean in own clothes Eye contact: Good Behavior: Pleasant, cooperative, mostly isolative to self, sits and watches TV in rec room or community room. Speech: Soft, clear, minimal. Mood: Euthymic Affect: Blunted Thought process: Linear Thought Content: Wants to sleep. Feels bloated. Cognition: A/O X4 Insight: Poor Judgment: Fair Interventions PRN's used: nicotine lozenges, Maalox Therapeutic interventions: 1:1 assessment, therapeutic communication, active listening, medication administration/education/monitoring, encouragement to attend groups, maintained Q 15 minute safety checks. Restraints/seclusion/emergency medication: N/A Justification of Continued Inpatient Treatment: Patient is being assessed for competency to stand trial.
[2020-03-12] MEDS: mag hydrox/Alum hydrox/simeth 30ml oral suspension PO PRN (19:53)
[2020-03-12 20:57] VITALS: BP 100/64
--- NOTE | 2020-03-13 05:13 | NUR ---
NURSING PROGRESS NOTE: Legal hold: 1370 Client on involuntary status for 1370: Court on 03/14 Report received from GRISELDA Ramon with use of SBAR Why are they here: The patient is a 34 year old female admitted on a 1370 from the residential. She has a history of meth induced psychosis and multiple arrests and time spent in residential. She is here to determine competency to stand trial. She was pleasant and cooperative upon admission. Denies SI/HI/ and all hallucinations and does not appear to be responding to internal stimuli. Assessment What has happened this shift: Patient watching TV and socializing with peers appropriately at the beginning of shift. Pleasant and cooperative with care; compliant with medication. PRN Nicotine lozenge and Maalox provided upon request. Patient denies SI, HI, A/VH. She participated in HS snack and continued to watch TV prior to bed. Observed sleeping and does not appear to be having difficulty. S/I, H/I: Denies A/VH: Denies Sleep: Refer to sleep assessment ADL's: Independent Group attendance: NA Were meds taken: Yes Any med S/E: None observed or reported. Mental Status Exam Appearance: Neat, clean, appropriate. Eye contact: Fair Behavior: Socializing, watching movies in the community room, pleasant and cooperative Speech: Soft, clear, minimal. Mood: Euthymic Affect: Blunt Thought process: Linear Thought Content: Meeting needs, constipated Cognition: Intact Insight: Fair Judgment: Fair Interventions PRN's used: Nicotine lozenge and Maalox Therapeutic interventions: 1:1 assessment, therapeutic communication, active listening, medication administration/education/monitoring, encouragement to attend groups, limit setting, distraction, redirection, maintained Q 15 minute safety checks. Restraints/seclusion/emergency medication: N/A Justification of Continued Inpatient Treatment: Patient is being assessed for competency to stand trial.
[2020-03-13] MEDS: clindamycin 1% topical susp 60ml bottle TP SCH ×2 (07:36→20:00)
[2020-03-13] MEDS: PALIPERIDONE 3 MG TAB.ER.24 PO SCH (07:43)
[2020-03-13] MEDS: lactobacillus rhamnosus 10,000 MMU CELLS/CAPSULE PO SCH ×2 (07:43→20:05)
[2020-03-13] MEDS: spironolactone 25 MG tablet PO SCH (07:44)
[2020-03-13] MEDS: nicotine 14mg patch - 24hr TD SCH (07:48)
[2020-03-13 08:13] VITALS: BP_SYST 78
[2020-03-13 08:30] VITALS: BP 93/49
[2020-03-13] MEDS: magnesium hydroxide 30ml (MOM) UD suspension PO PRN (09:39)
[2020-03-13] MEDS: NICOTINE POLACRILEX 2 MG LOZENGE BC PRN ×4 (09:39→20:05)
[2020-03-13] MEDS: mag hydrox/Alum hydrox/simeth 30ml oral suspension PO PRN (12:15)
--- NOTE | 2020-03-13 13:10 | NUR ---
NURSING PROGRESS NOTE: Legal hold: 1370 Client on involuntary status for 1370 Report received from GRISELDA Wang with use of SBAR Why are they here: The patient is a 34 year old female admitted on a 1370 from the retirement. She has a history of meth induced psychosis and multiple arrests and time spent in retirement. She is here to determine competency to stand trial. She was pleasant and cooperative upon admission. Denies SI/HI/ and all hallucinations and does not appear to be responding to internal stimuli. Assessment What has happened this shift: Pt's initial BP this am before breakfast was 78/44, rechecked BP once pt up and moving around and it was 93/49. Held Aldactone 25 mg. Pt later asked this nurse for a water pill as her feet and legs are puffy. Assessed feet and legs, no edema noted. Pt has gained 10 kg since admit. Pt educated that she is not retaining water and that her blood pressure runs low so a diuretic would not be a good thing for her. Notified Dr Browne that the Aldactone was held this morning and that her BP's have been running low. Aldactone was D/c'd. Pt applied topical Clindamycin to facial acne, pt agrees to continue using it now that she understands it is an antibiotic. Pt requested PRN MOM for c/o constipation along with a nicotine lozenge at 0939. She requested Maalox and a nicotine lozenge at 1215. Pt's [address] hearing is tomorrow morning. S/I, H/I: Pt denies A/VH: Pt denies Sleep: Pt slept 8.25 hours last night per noc shift report. ADL's: Independent Group attendance: No Were meds taken: Yes Any med S/E: None noted or reported. Mental Status Exam Appearance: Neat, clean, appropriate woman with short hair. Eye contact: Good Behavior: Pleasant, cooperative, restless at times. Speech: Soft, clear Mood: Euthymic Affect: Blunted Thought process: Linear Thought Content: Her stomach bothers her, her legs feel puffy. Cognition: A/O X 4 Insight: Poor Judgment: Fair Interventions PRN's used: MOM, Maalox, nicotine lozenges. Therapeutic interventions: 1:1 assessment, therapeutic communication, active listening, medication administration/education/monitoring, encouragement to attend groups, limit setting, distraction, redirection, maintained Q 15 minute safety checks. Restraints/seclusion/emergency medication: N/A Justification of Continued Inpatient Treatment: Pt has been deemed competent to attend trial, court date pending 03/14/20 and she has been accepted at the [facility].
[2020-03-13] MEDS ORDERED: paliperidone palmitate inj 234 MG/1.5 ML SYRINGE IM ONE (13:25)
[2020-03-13] MEDS: olanzapine 10mg tablet PO SCH (20:04)
[2020-03-13 20:53] VITALS: BP 113/69
--- NOTE | 2020-03-14 03:18 | NUR ---
NURSING PROGRESS NOTE Legal hold: 1370 Client on involuntary status for 1370 Report received from Agustin VILLALOBOS with use of SBAR Why are they here: The patient is a 34 year old female admitted on a 1370 from the correction. She has a history of meth induced psychosis and multiple arrests and time spent in correction. She is here to determine competency to stand trial. She was pleasant and cooperative upon admission. Denies SI/HI/ and all hallucinations and does not appear to be responding to internal stimuli. Assessment What has happened this shift: The patient was observed out on the unit, in the community room with peers. 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 She asks to shower, she sings loudly in the shower and is in a good mood. She is cooperative with 1:1 assessment and denies any discomfort at this time. She also denies SI/HI/AH/VH. She is medication compliant . S/I, H/I: Denies. A/VH: Denies. Sleep: See sleep assessment. ADL's: Independent Group attendance: No night groups Were meds taken: Yes. Any med S/E: None observed or reported. Mental Status Exam Appearance: Clean ,wearing green scrub bottoms and a shirt. Eye contact: Good Behavior: Cooperative Speech: Clear, but minimal. Mood: withdrawn Affect:flat Thought process: Linear Thought Content: Getting needs met. Cognition: A&O X4 Insight: Poor Judgment: Fair Interventions PRN's used: Nicotine Therapeutic interventions: Maintained a safe and therapeutic environment, provided clear and simple instructions, encouraged independent performance of ADLs and participation on the unit, ,medication administration/education/monitoring, provided active listening, maintained Q 15min safety checks. Restraints/seclusion/emergency medication: N/A Justification of Continued Inpatient Treatment: Patient is being assessed for competency to stand trial.
[2020-03-14] MEDS: lactobacillus rhamnosus 10,000 MMU CELLS/CAPSULE PO SCH ×2 (07:26→20:41)
[2020-03-14] MEDS: PALIPERIDONE 3 MG TAB.ER.24 PO SCH (07:27)
[2020-03-14] MEDS: NICOTINE POLACRILEX 2 MG LOZENGE BC PRN ×3 (07:29→15:40)
[2020-03-14] MEDS: clindamycin 1% topical susp 60ml bottle TP SCH ×2 (07:32→20:00)
[2020-03-14 07:47] VITALS: BP 112/55
[2020-03-14] MEDS: nicotine 14mg patch - 24hr TD SCH (08:12)
[2020-03-14] MEDS: hydrOXYzine 25 MG tablet PO PRN (12:54)
--- NOTE | 2020-03-14 14:37 | NUR ---
NURSING PROGRESS NOTE: Legal hold: Voluntary Report received from GRISELDA Wang with use of SBAR Why are they here: The patient is a 34 year old female admitted on a 1370 from the fdc. She has a history of meth induced psychosis and multiple arrests and time spent in fdc. She is here to determine competency to stand trial. She was pleasant and cooperative upon admission. Denies SI/HI/ and all hallucinations and does not appear to be responding to internal stimuli. Assessment What has happened this shift: Pt had court today. She was picked up at 0810 by Isma and returned at 1205. Pt was in good spirits, she stated, "I got released with credit for time served." Pt signed in voluntary. Pt requested Atarax 75 mg at 1254 for anxiety with good effect. GLORY Averye reported that the plan is for the pt to D/c to the [facility] on Wednesday or Wednesday. S/I, H/I: Pt denies A/VH: Pt denies Sleep: Pt slept 7 hours last night per noc shift report. ADL's: Independent Group attendance: No Were meds taken: Yes Any med S/E: None noted or reported. Mental Status Exam Appearance: Neat, clean, appropriate woman with short hair dressed in street clothes. Eye contact: Good Behavior: Pleasant, cooperative, restless at times. Speech: Soft, clear Mood: Euthymic Affect: Full range Thought process: Linear Thought Content: Happy she has been released from fdc. Cognition: A/O X 4 Insight: Poor Judgment: Fair Interventions PRN's used: Atarax, nicotine lozenges. Therapeutic interventions: 1:1 assessment, therapeutic communication, active listening, medication administration/education/monitoring, encouragement to attend groups, limit setting, distraction, redirection, maintained Q 15 minute safety checks. Restraints/seclusion/emergency medication: N/A Justification of Continued Inpatient Treatment: Pt has been released from [facility]dc, she is now here on a voluntary status and will be discharged to the [facility] early next week.
--- NOTE | 2020-03-14 15:20 | NUR ---
[facility] 03/18 OR 03/19 [facility] will have a bed for Jackie on Wednesday or Wednesday next week. She is agreeable to staying on the unit until she can go to [facility]. JAILENE Bolton
[2020-03-14] MEDS: mag hydrox/Alum hydrox/simeth 30ml oral suspension PO PRN (17:17)
[2020-03-14 19:51] VITALS: BP 92/63
[2020-03-14] MEDS: traZODone 50mg tablet PO PRN (20:41)
[2020-03-14] MEDS: olanzapine 10mg tablet PO SCH (20:41)
--- NOTE | 2020-03-15 00:58 | NUR ---
NURSING PROGRESS NOTE: Legal hold: Voluntary Report received from GRISELDA Duke with use of SBAR Why are they here: The patient is a 34 year old female admitted on a 1370 from the nursing home. 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 She is here to determine competency to stand trial. She was pleasant and cooperative upon admission. Denies SI/HI/ and all hallucinations and does not appear to be responding to internal stimuli. Assessment What has happened this shift: Pt isolated to her room the majority of the shift, mainly sleeping. She does wake up to get snack and her HS medications. She is cooperative with 1:1 assessment. She utilizes prn trazodone for sleep. She is minimal in her speech and tired, she returns to bed after taking her medication. S/I, H/I: Pt denies A/VH: Pt denies Sleep: see sleep assessment ADL's: Independent Group attendance: No Were meds taken: Yes Any med S/E: None noted or reported. Mental Status Exam Appearance: Neat, clean Eye contact: Good Behavior: Pleasant, cooperative, restless at times. Speech: Soft, clear Mood: Euthymic Affect: Full range Thought process: Linear Thought Content: Happy she has been released from nursing home. Cognition: A/O X 4 Insight: Poor Judgment: Fair Interventions PRN's used: Therapeutic interventions: 1:1 assessment, therapeutic communication, active listening, medication administration/education/monitoring, encouragement to attend groups, limit setting, distraction, redirection, maintained Q 15 minute safety checks. Restraints/seclusion/emergency medication: N/A Justification of Continued Inpatient Treatment: Pt has been released from nursing home, she is now here on a voluntary status and will be discharged to the [facility] early next week.
[2020-03-15 07:30] VITALS: BP 94/60
[2020-03-15] MEDS: lactobacillus rhamnosus 10,000 MMU CELLS/CAPSULE PO SCH ×2 (08:09→20:19)
[2020-03-15] MEDS: PALIPERIDONE 3 MG TAB.ER.24 PO SCH (08:09)
[2020-03-15] MEDS: clindamycin 1% topical susp 60ml bottle TP SCH ×2 (08:10→20:00)
[2020-03-15] MEDS: nicotine 14mg patch - 24hr TD SCH (08:10)
--- NOTE | 2020-03-15 10:00 | NUR ---
Group Therapy: Process Group This Clinicians goals for this process group were as follows: (1) Ask scaling questions about patients current anxiety, depression, and irritability symptoms as a check-in. (2) Share psychoeducation about automatic thoughts and cognitive distortions. (3) Share psychoeducation on CBT thought-stopping and, thought-reframing. (4) Discuss strategies for identifying negative, unhelpful, and/or irrational thoughts as quickly as possible to avoid unwanted escalation of mental health symptoms. (5) Process patients thoughts and reflections on this topic within the group milieu. Patient identified experiencing the following levels of anxiety, depression, and anger/irritability while present in the group milieu (0-low; 10-High). Anxiety: 02/02 Depression: 09/02 Anger/irritability: 0 Patient presented as properly oriented x4 during the process group. Patient was dressed in nondescript, personal clothing that were appropriate within the milieu. Psychomotor activity was unremarkable. Patient's thought content was clear, and concrete. Patient's thought process was clear, coherent, and linear. This Clinician did not observe Patient responding to any internal stimuli during session. The rate, latency, and tone of Patients speech was within normal limits. Patients speech was clear, and understandable. Patient maintained regular eye contact with this Clinician. Patient presented in calm euthymic mood, with congruent affect during the process group. Patient presented as cooperative, verbally engaged when addressed by this Clinician, and nonobtrusive within the group milieu. Patient reported experiencing heightened anxiety during her initial check-in with this Clinician, 02/02. Per this Clinician's impression, however, she presented in a jovial and talkative mood. Patient was an active verbal participant during the process group discussion on cognitive distortions, and the CBT interventions of: thought-stopping and thought-reframing as tools to assist patients in identifying more balanced/helpful/rational thoughts. Gallo Arias MA, JAILENE Addendum: 03/18/20 at 0811 by Gallo Arias SS Amended: Links added.
[2020-03-15] MEDS: NICOTINE POLACRILEX 2 MG LOZENGE BC PRN ×4 (10:24→18:29)
[2020-03-15] MEDS: polyethylene glycol 3350 17gm powd pack PO PRN (10:25)
[2020-03-15] MEDS ORDERED: PALI156D IM (12:14)
[2020-03-15] MEDS ORDERED: HYDR50TA65 PO (12:14)
[2020-03-15] MEDS ORDERED: OLAN10TA3 PO (12:14)
[2020-03-15] MEDS ORDERED: TRAZ-256 PO (12:14)
[2020-03-15] MEDS ORDERED: NICO-668 BC (12:14)
[2020-03-15] MEDS ORDERED: CLIN60LO2 TP (12:14)
[2020-03-15] MEDS ORDERED: POLY17PO36 PO (12:14)
[2020-03-15] MEDS ORDERED: NICO-631 TD (12:14)
--- NOTE | 2020-03-15 13:45 | NUR ---
NURSING PROGRESS NOTE: Legal hold: Voluntary Report received from GRISELDA Garber with use of SBAR Why are they here: The patient is a 34 year old female admitted on a 1370 from the skilled nursing. She has a history of meth induced psychosis and multiple arrests and time spent in skilled nursing. She is here to determine competency to stand trial. She was pleasant and cooperative upon admission. Denies SI/HI/ and all hallucinations and does not appear to be responding to internal stimuli. Assessment What has happened this shift: Received patient sleeping at shift change, no distress noted. Pt woke prior to breakfast and received AM medications. Pt is quiet, but pleasant upon greeting. Pt returned to bed after breakfast. Pt has a guarded affect, but I believe this is her baseline. Pt states she is looking forward to [facility]. Asks often for snacks and beverages. Pt changed her clothes twice today. Patient c/o of constipation later in the morning, administered Miralax. Will continue to monitor. Today was pts birthday and had cupcakes for her. S/I, H/I: Pt denies both. A/VH: Pt denies both. Sleep: 10 hours per Sleep Assessment. Pt napped after breakfast. ADL's: Independent Group attendance: Yes. Were meds taken: Yes, without issue. Any med S/E: None reported or observed. Mental Status Exam Appearance: Neat, clean, wearing appropriate personal attire. Eye contact: Good Behavior: Pleasant, cooperative. Watched T.V or ambulated halls. Attended group, socialized with select peers. Speech: Clear, minimal, quite. Mood: Euthymic Affect: Congruent with mood. Thought process: Linear Thought Content: Happy she has been released from skilled nursing. Cognition: A/O X 4 Insight: Poor Judgment: Fair Interventions PRN's used: Miralax, Nicotine lozenge. Therapeutic interventions: 1:1 assessment, therapeutic communication, active listening, medication administration/education/monitoring, encouragement to attend groups, limit setting, distraction, redirection, maintained Q 15 minute safety checks. Restraints/seclusion/emergency medication: N/A Justification of Continued Inpatient Treatment: Patient has been released from skilled nursing, she is now here on a voluntary status and will be discharged to the [facility] early next week.
[2020-03-15] MEDS: mag hydrox/Alum hydrox/simeth 30ml oral suspension PO PRN (18:29)
[2020-03-15 19:00] VITALS: BP 99/66
[2020-03-15] MEDS: olanzapine 10mg tablet PO SCH (20:19)
[2020-03-15] MEDS: traZODone 50mg tablet PO PRN (20:20)
--- NOTE | 2020-03-16 00:15 | NUR ---
NURSING PROGRESS NOTE Legal hold: VOL Client on involuntary status for 1370 Report received from Leilani VILLALOBOS with use of SBAR Why are they here: The patient is a 34 year old female admitted on a 1370 from the [facility]. She has a history of meth induced psychosis and multiple arrests and time spent in [facility]. She is here to determine competency to stand trial. She was pleasant and cooperative upon admission. Denies SI/HI/ and all hallucinations and does not appear to be responding to internal stimuli. Assessment What has happened this shift: Pt watches TV with peers at shift change, talking and laughing with them in the rec room. She denies SI/HI/AH/VH. She is medication compliant and asks for trazodone to help with sleep. Pt is minimal in her interaction and only talks to staff when she requests medications or food. S/I, H/I: Denies. A/VH: Denies. Sleep: See sleep assessment. ADL's: Independent Group attendance: No night groups Were meds taken: Yes. Any med S/E: None observed or reported. Mental Status Exam Appearance: Clean ,wearing green scrub bottoms and a shirt. Eye contact: Good Behavior: Cooperative, guarded, isolative, withdrawn. Speech: Clear, but minimal. Mood: withdrawn Affect:flat Thought process: Linear Thought Content: Getting needs met. Cognition: A&O X4 Insight: Poor Judgment: Fair Interventions PRN's used: None Therapeutic interventions: Maintained a safe and therapeutic environment, provided clear and simple instructions, encouraged independent performance of ADLs and participation on the unit, ,medication administration/education/monitoring, provided active listening, maintained Q 15min safety checks. Restraints/seclusion/emergency medication: N/A Justification of Continued Inpatient Treatment: Patient is on voluntary status
[2020-03-16 08:00] VITALS: BP 97/58
[2020-03-16] MEDS: clindamycin 1% topical susp 60ml bottle TP SCH ×2 (08:25→20:19)
[2020-03-16] MEDS: lactobacillus rhamnosus 10,000 MMU CELLS/CAPSULE PO SCH ×2 (08:25→20:18)
[2020-03-16] MEDS: PALIPERIDONE 3 MG TAB.ER.24 PO SCH (08:26)
[2020-03-16] MEDS: nicotine 14mg patch - 24hr TD SCH (08:36)
[2020-03-16] MEDS: NICOTINE POLACRILEX 2 MG LOZENGE BC PRN ×3 (13:07→17:22)
--- NOTE | 2020-03-16 14:09 | NUR ---
NURSING PROGRESS NOTE: Legal hold: Voluntary Report received from GRISELDA Garber with use of SBAR Why are they here: The patient is a 34 year old female admitted on a 1370 from the [facility]. She has a history of meth induced psychosis and multiple arrests and time spent in [facility]. She is here to determine competency to stand trial. She was pleasant and cooperative upon admission. Denies SI/HI/ and all hallucinations and does not appear to be responding to internal stimuli. Assessment What has happened this shift: Received patient sleeping at shift change, no distress noted. Pt woke prior to breakfast and received AM medications. Pt ate breakfast then went back to bed until late morning. Pt continues to be cooperative and compliant with medication and care. Pt is social with peers, watching T.V and playing a board game. Pt denies all MH symptoms. Pt reports having a small bowel movement. 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 S/I, H/I: Pt denies both. A/VH: Pt denies both. Sleep: 7.25 hours per Sleep Assessment. Slept after breakfast and intermittenly throughout shift. ADL's: Independent Group attendance: No scheduled groups today. Were meds taken: Yes, without issue. Any med S/E: None reported or observed. Mental Status Exam Appearance: Neat, clean, wearing appropriate personal attire. Changed clothes twice. Eye contact: Good Behavior: Pleasant, cooperative. Watched T.V interacting with peers. Speech: Clear, minimal, quite. Mood: Euthymic Affect: Congruent with mood. Thought process: Linear Thought Content: Situational. Cognition: A/O X 4 Insight: Poor Judgment: Fair Interventions PRN's used: Nicotine lozenge Therapeutic interventions: Maintained a safe and supportive environment, provided mediation administration/education and monitoring, encouraged independent performance of ADL's provided clear, simple instructions; Q15 min safety checks. Restraints/seclusion/emergency medication: N/A Justification of Continued Inpatient Treatment: Patient voluntary, waiting discharge to the [facility] early next week.
[2020-03-16] MEDS: polyethylene glycol 3350 17gm powd pack PO PRN (14:23)
--- NOTE | 2020-03-16 14:34 | NUR ---
Miralax administered. Pt c/o of constipation. States she had a BM before lunch and it was small and hard.
[2020-03-16 19:00] VITALS: BP 105/72
[2020-03-16] MEDS ORDERED: OLAN10TA19 PO (19:00)
[2020-03-16] MEDS ORDERED: magnesium citrate 296ml oral solution PO ONE (19:40)
[2020-03-16] MEDS: olanzapine 10mg tablet PO SCH (20:18)
[2020-03-16] MEDS: traZODone 50mg tablet PO PRN (20:19)
--- NOTE | 2020-03-17 00:39 | NUR ---
NURSING PROGRESS NOTE: Legal hold: Voluntary Report received from GRISELDA Garber with use of SBAR Why are they here: The patient is a 34 year old female admitted on a 1370 from the [facility]. She has a history of meth induced psychosis and multiple arrests and time spent in correction. She is here to determine competency to stand trial. She was pleasant and cooperative upon admission. Denies SI/HI/ and all hallucinations and does not appear to be responding to internal stimuli. Assessment What has happened this shift: Patient was watching T.V in the rec room at shift change. Patient requested a nicotine lozenge. The Miralax administered during the day was not effective. Abdomen is firm and tender to the touch. Last BM reported was yesterday - small and hard. Received order for Miralax with some effect as of this writing. Pt hung out watching T.V, participated in HS snack then went to bed. Compliant with medication and care. Nicotine patch removed. S/I, H/I: Pt denies both. A/VH: Pt denies both. Sleep: Administered 50mg Trazadone with effect. See Sleep Assessment for total hours. ADL's: Independent Group attendance: No group at night. Were meds taken: Yes, without issue. Any med S/E: None reported or observed. Mental Status Exam Appearance: Neat, clean, wearing appropriate personal attire. Eye contact: Good Behavior: Pleasant, cooperative. Watched T.V interacting with peers. Speech: Clear, minimal, quite. Mood: Euthymic Affect: Congruent with mood. Thought process: Linear Thought Content: Situational. Cognition: A/O X 4 Insight: Poor Judgment: Fair Interventions PRN's used: Mag Citrate, Nicotine lozenge, Trazadone. Therapeutic interventions: Maintained a safe and supportive environment, provided mediation admnistration/education and monitoring, encouraged independent performance of ADL's provided clear/simple instructions; Q15 min safety checks. Restraints/seclusion/emergency medication: N/A Justification of Continued Inpatient Treatment: Patient voluntary, waiting discharge to the [facility] early next week.
[2020-03-17 07:47] VITALS: BP 104/65
[2020-03-17] MEDS: lactobacillus rhamnosus 10,000 MMU CELLS/CAPSULE PO SCH ×2 (07:53→20:06)
[2020-03-17] MEDS: PALIPERIDONE 3 MG TAB.ER.24 PO SCH (07:53)
[2020-03-17] MEDS: nicotine 14mg patch - 24hr TD SCH (07:55)
[2020-03-17] MEDS: clindamycin 1% topical susp 60ml bottle TP SCH ×2 (08:26→20:00)
[2020-03-17] MEDS: NICOTINE POLACRILEX 2 MG LOZENGE BC PRN ×4 (12:05→19:16)
[2020-03-17] MEDS: mag hydrox/Alum hydrox/simeth 30ml oral suspension PO PRN (13:39)
[2020-03-17] MEDS: hydrOXYzine 25 MG tablet PO PRN (13:44)
--- NOTE | 2020-03-17 14:44 | NUR ---
NURSING PROGRESS NOTE: Legal hold: Voluntary Report received from Rosa Kilgore RN with use of SBAR Why are they here: The patient is a 34 year old female admitted on a 1370 from the long-term. She has a history of meth induced psychosis and multiple arrests and time spent in long-term. She is here to determine competency to stand trial. She was pleasant and cooperative upon admission. Denies SI/HI/ and all hallucinations and does not appear to be responding to internal stimuli. Assessment What has happened this shift: Pt is cooperative with medications and unit procedures. She socializes with peers. She does make frequent requests for PRN medications. Pt medicated with PRN Maalox @ 1339 for c/o gas/abdominal discomfort. She then requested Atarax 75 mg at 1344 for c/o anxiety. She frequently requests nicotine lozenges. Pt is looking forward to going to the [facility]. S/I, H/I: Pt denies A/VH: Pt denies Sleep: Pt slept 7.75 hours last night per noc shift report. ADL's: Independent Group attendance: No Were meds taken: Yes Any med S/E: None noted or reported. Mental Status Exam Appearance: Neat, clean, woman with short hair dressed in street clothes. Eye contact: Good Behavior: Pleasant, cooperative, somewhat med seeking at times. Speech: Soft, clear Mood: Anxious Affect: Anxious Thought process: Linear Thought Content: Focuses on PRN meds and pending discharge to the [facility]. Cognition: A/O X 4 Insight: Poor Judgment: Fair Interventions PRN's used: Maalox, Atarax, nicotine lozenges. Therapeutic interventions: 1:1 assessment, therapeutic communication, active listening, medication administration/education/monitoring, encouragement to attend groups, limit setting, distraction, redirection, maintained Q 15 minute safety checks. Restraints/seclusion/emergency medication: N/A Justification of Continued Inpatient Treatment: Pt has been released from long-term, she is now here on a voluntary status and will be discharged to the [facility] early next week.
[2020-03-17] MEDS ORDERED: paliperidone palmitate 156 mg/ml inj.**IM only IM ONE (18:30)
[2020-03-17] MEDS: magnesium hydroxide 30ml (MOM) UD suspension PO PRN (19:16)
[2020-03-17] MEDS: olanzapine 10mg tablet PO SCH (20:06)
[2020-03-17] MEDS: traZODone 50mg tablet PO PRN (20:06)
[2020-03-17 20:25] VITALS: BP 100/66
--- NOTE | 2020-03-18 00:56 | NUR ---
NURSING PROGRESS NOTE: Legal hold: Voluntary Report received from GRISELDA Ramon with use of SBAR Why are they here: The patient is a 34 year old female admitted on a 1370 from the [facility]. She has a history of meth induced psychosis and multiple arrests and time spent in [facility]. She is here to determine competency to stand trial. She was pleasant and cooperative upon admission. Denies SI/HI/ and all hallucinations and does not appear to be responding to internal stimuli. Assessment What has happened this shift: Pt is cooperative with medications and unit procedures. She socializes with peers. She does make frequent requests for PRN medications. Pt medicated with PRN MOM at 2000 for c/o slight constipation. She frequently requests nicotine lozenges. Pt is looking forward to going to the [facility]. S/I, H/I: Pt denies A/VH: Pt denies Sleep: ADL's: Independent Group attendance: No Were meds taken: Yes Any med S/E: None noted or reported. Mental Status Exam Appearance: Neat, clean, woman with short hair dressed in street clothes. Eye contact: Good Behavior: Pleasant, cooperative Speech: Soft, clear Mood: Anxious Affect: Anxious Thought process: Linear Thought Content: Focuses on PRN meds and pending discharge to the [facility]. Cognition: A/O X 4 Insight: Poor Judgment: Fair Interventions PRN's used: MOM, nicotine lozenges. Therapeutic interventions: 1:1 assessment, therapeutic communication, active listening, medication administration/education/monitoring, encouragement to attend groups, limit setting, distraction, redirection, maintained Q 15 minute safety checks. Restraints/seclusion/emergency medication: N/A Justification of Continued Inpatient Treatment: Pt has been released from [facility], she is now here on a voluntary status and will be discharged to the [facility] early next week.
[2020-03-18] MEDS: clindamycin 1% topical susp 60ml bottle TP SCH ×2 (07:32→20:00)
[2020-03-18] MEDS: nicotine 14mg patch - 24hr TD SCH (07:33)
[2020-03-18] MEDS: PALIPERIDONE 3 MG TAB.ER.24 PO SCH (07:33)
[2020-03-18] MEDS: lactobacillus rhamnosus 10,000 MMU CELLS/CAPSULE PO SCH ×2 (07:33→20:53)
[2020-03-18 08:00] VITALS: BP 99/56
--- NOTE | 2020-03-18 08:44 | NUR ---
Reassessment: Pt continues with average 100% PO intake on regular diet meeting estimated nutrient needs. LBM 03/16, receiving PRN bowel care. Pt +31lb since admit, possible error. No nutrition concerns at this time. Will continue to follow. Rec: 1. continue regular diet 2. bowel care per rx 3. wt per rx Addendum: 03/18/20 at [address] RD Approves Addendum: 03/18/20 at [address] Amended: Links added.
[2020-03-18] MEDS: NICOTINE POLACRILEX 2 MG LOZENGE BC PRN ×5 (10:12→19:06)
[2020-03-18] MEDS: mag hydrox/Alum hydrox/simeth 30ml oral suspension PO PRN ×2 (12:23→19:06)
--- NOTE | 2020-03-18 14:35 | NUR ---
NURSING PROGRESS NOTE: Legal hold: Voluntary Report received from Rosa Kilgore RN with use of SBAR Why are they here: The patient is a 34 year old female admitted on a 1370 from the [facility]. She has a history of meth induced psychosis and multiple arrests and time spent in [facility]. She is here to determine competency to stand trial. She was pleasant and cooperative upon admission. Denies SI/HI/ and all hallucinations and does not appear to be responding to internal stimuli. Assessment What has happened this shift: Pt continues to c/o gas and bloating, abdomen is rounded, soft, nontender with bowel sounds present in all 4 quadrants. Pt denies depression, SI/HI/AH/VH. Pt requested PRN Maalox at 1223. She frequently requests PRN nicotine lozenges. Pt is disappointed that her discharge to the [facility] will not be happening today as we are still waiting for some of her medications to be filled and picked up. Plan is for pt to discharge to the [facility] tomorrow. S/I, H/I: Pt denies A/VH: Pt denies Sleep: Pt slept 8 hours last night per noc shift report. ADL's: Independent Group attendance: Yes Were meds taken: Yes Any med S/E: None noted or reported. Mental Status Exam Appearance: Neat, clean, woman with short hair dressed in street clothes. Eye contact: Good Behavior: Pleasant, cooperative Speech: Soft, clear Mood: Mildly anxious Affect: Congruent Thought process: Linear Thought Content: Disappointed she is not being discharged today. Cognition: A/O X 4 Insight: Poor Judgment: Fair Interventions PRN's used: Maalox, nicotine lozenges. Therapeutic interventions: 1:1 assessment, therapeutic communication, active listening, medication administration/education/monitoring, encouragement to attend groups, limit setting, distraction, redirection, provided encouragement and positive reinforcement,maintained Q 15 minute safety checks. Restraints/seclusion/emergency medication: N/A Justification of Continued Inpatient Treatment: Pt has been released from [facility], she is now here on a voluntary status and will be discharged to the [facility] early next week.
[2020-03-18 20:43] VITALS: BP 100/65
[2020-03-18] MEDS: olanzapine 10mg tablet PO SCH (20:53)
--- NOTE | 2020-03-19 03:05 | NUR ---
NURSING PROGRESS NOTE: Legal hold: Voluntary Report received from Tristen VILLALOBOS, with use of SBAR Why are they here: The patient is a 34 year old female admitted on a 1370 from the skilled nursing. She has a history of meth induced psychosis and multiple arrests and time spent in skilled nursing. She is here to determine competency to stand trial. She was pleasant and cooperative upon admission. Denies SI/HI/ and all hallucinations and does not appear to be responding to internal stimuli. Assessment What has happened this shift: At beginning of shift pt. sitting in recreation room watching TV. Pt. c/o gas discomfort and requesting maalox which was given. Pt. also requested a prn nicotene lozenge at this time. Abdomen remains rounded, soft, & nontender with bowel sounds present in all 4 quadrants. Pt denies depression, SI/HI/AH/VH. Pt is disappointed that her discharge to the [facility] will not be happening today as we are still waiting for some of her medications to be filled and picked up. Plan is for pt to discharge to the [facility] tomorrow. S/I, H/I: Pt denies A/VH: Pt denies Sleep: See sleep report ADL's: Independent Group attendance: N/A Were meds taken: Yes Any med S/E: None noted or reported. Mental Status Exam Appearance: Neat, clean, woman with short hair dressed in street clothes. Eye contact: Good Behavior: Pleasant, cooperative Speech: Soft, clear Mood: Mildly anxious Affect: Congruent Thought process: Linear Thought Content: Disappointed she is not being discharged today. Cognition: A/O X 4 Insight: Poor Judgment: Fair Interventions PRN's used: Maalox, nicotine lozenges. Therapeutic interventions: 1:1 assessment, therapeutic communication, active listening, medication administration/education/monitoring, encouragement to attend groups, limit setting, distraction, redirection, provided encouragement and positive reinforcement,maintained Q 15 minute safety checks. Restraints/seclusion/emergency medication: N/A Justification of Continued Inpatient Treatment: Pt has been released from skilled nursing, she is now here on a voluntary status and will be discharged to the [facility] early next week.
[2020-03-19 08:00] VITALS: BP 92/54
[2020-03-19] MEDS: clindamycin 1% topical susp 60ml bottle TP SCH (08:00)
[2020-03-19] MEDS: lactobacillus rhamnosus 10,000 MMU CELLS/CAPSULE PO SCH (08:01)
[2020-03-19] MEDS: PALIPERIDONE 3 MG TAB.ER.24 PO SCH (08:01)
[2020-03-19] MEDS: nicotine 14mg patch - 24hr TD SCH (08:03)
[2020-03-19] MEDS: NICOTINE POLACRILEX 2 MG LOZENGE BC PRN (10:19)
[2020-03-19] MEDS: mag hydrox/Alum hydrox/simeth 30ml oral suspension PO PRN (10:19)
[2020-03-19] MEDS ORDERED: PALI156D IM (12:36)
--- NOTE | 2020-03-19 14:11 | NUR ---
Discharge Note: Pt dc'd to [facility] via [facility] peg driver at 1340. Discharge instructions including f/u rain and medications reviewed with the pt, she verbalized understanding and signed and copy given to her. Smoking cessation information provided to the pt. All belongings returned. Pt happy r/t discharge.
== END 2020-03-19 13:40 | DRG 751 ==
LOC: EEVIPCON → ADULT MH 15:31
PROVIDERS: ADMIT Psychiatry & Neurology Psychiatry; ATTEND Psychiatry & Neurology Psychiatry
DX: F29 Unspecified psychosis not due to a substance or known physiological condition (principal); F20.9 Schizophrenia, unspecified; E11.9 Type 2 diabetes mellitus without complications; I10 Essential (primary) hypertension; N76.0 Acute vaginitis; G47.00 Insomnia, unspecified; F15.20 Other stimulant dependence, uncomplicated; Z87.891 Personal history of nicotine dependence; Z59.0 Homelessness; Z28.21 Immunization not carried out because of patient refusal
CPT/HCPCS: 36415; 80053; 80061; 80305; 81003; 81025; 82948; 83036; 84443; 85025; 87081; Q0177